=== PATIENT | female | born 2000 | race Caucasian/White ===

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

== ENCOUNTER 2019-09-16 02:12 | Inpatient (IN) | payer OTHER ==
[2019-09-16] MEDS ORDERED: SODIUM CHLORIDE 0.9% 500 ML 500 ML IV STA (02:21)
[2019-09-16] MEDS ORDERED: ACETYLCYSTEINE 6,000 MG/30 ML VIAL PO STA (02:33)
--- NOTE | 2019-09-16 02:38 | ED ---
Overdose HPI - General Source: patient, EMS Mode of arrival: EMS Limitations: no limitations - History of Present Illness MD Complaint: intentional overdose Onset/Timin -: hour(s) Intent: suicide attempt How Overdose Was Discovered: called 911 Associated Symptoms: depression Treatments Prior to Arrival: none <Bull Abad - Last Filed: 09/16/19 07:21> <Louise Navarrete - Last Filed: 09/16/19 09:39> - General Chief Complaint: Psychiatric Symptoms Stated Complaint: Suicidal Time Seen by Provider: 09/16/19 02:18 - History of Present Illness Initial Comments: This patient is 19-year-old woman who states she has been feeling increasingly depressed over the last couple of months and then tonight she decided she would take an overdose. She took an unknown number of Tylenol PM type pills, containing 500 mg of acetaminophen and 50 mg Benadryl. She also took an unknown number of naproxen 500 mg tablets. This was at midnight. Patient states that she then called 911. She is denying symptoms currently. (Bull Abad) - Related Data Previous Rx's Medication Instructions Recorded Azithromycin [Zithromax Z-pack] 250 mg PO DIRECTED #6 tab 03/10/17 Omeprazole 40 mg PO DAILY #20 capsule. 04/21/17 Ondansetron Odt [Zofran Odt] 4 mg PO Q8HR PRN #12 tab 04/21/17 Acetaminophen Tab [Tylenol Tab] 1,000 mg PO Q6HR #30 tablet 07/26/17 Ibuprofen [Motrin] 600 mg PO Q6HR PRN #30 tab 07/26/17 Promethazine/Dextromethorphan 5 ml PO TID #120 ml 07/26/17 [Phenergan DM Syrup] Allergies Allergy/AdvReac Type Severity Reaction Status Date / Time No Known Allergies Allergy Verified 08/13/17 20:59 Review of Systems ROS Other: All systems not noted in ROS Statement are negative. Constitutional: Denies: fever, chills Respiratory: Denies: cough, dyspnea Cardiovascular: Denies: chest pain, edema, syncope Gastrointestinal: Denies: abdominal pain, nausea, vomiting, diarrhea Genitourinary: Denies: dysuria, hematuria, abnormal menses Musculoskeletal: Denies: back pain Skin: Denies: rash Neurological: Denies: headache, weakness Psychiatric: Reports: depression, suicidal thoughts. Denies: auditory hallucinations, visual hallucinations <Bull Abad - Last Filed: 09/16/19 07:21> ROS Other: All systems not noted in ROS Statement are negative. <Louise Navarrete - Last Filed: 09/16/19 09:39> ROS Statement: Those systems with pertinent positive or pertinent negative responses have been documented in the HPI. Past Medical History Past Medical History: No Reported History History of Any Multi-Drug Resistant Organisms: None Reported Past Surgical History: Adenoidectomy, Tonsillectomy Past Psychological History: No Psychological Hx Reported, Bipolar, Depression Smoking Status: Never smoker Past Alcohol Use History: None Reported Past Drug Use History: Marijuana <Bull Abad - Last Filed: 09/16/19 07:21> General Exam Limitations: no limitations General appearance: alert, in no apparent distress Head exam: Present: atraumatic, normocephalic Eye exam: Present: normal appearance. Absent: scleral icterus, conjunctival in jection ENT exam: Present: normal oropharynx Respiratory exam: Present: normal lung sounds bilaterally. Absent: respiratory distress, wheezes, rales, rhonchi, stridor Cardiovascular Exam: Present: normal rhythm, tachycardia, normal heart sounds. Absent: systolic murmur, diastolic murmur, rubs, gallop GI/Abdominal exam: Present: soft. Absent: distended, tenderness, guarding, rebound, rigid, mass Extremities exam: Present: normal inspection, normal capillary refill. Absent: pedal edema, calf tenderness Back exam: Present: normal inspection. Absent: CVA tenderness (R), CVA tenderness (L) Neurological exam: Present: alert, oriented X3 Psychiatric exam: Present: depressed, anxious, suicidal ideation. Absent: agitated, flat affect, manic, homicidal ideation Skin exam: Present: warm, dry, intact, normal color. Absent: rash <Bull Abad - Last Filed: 09/16/19 07:21> Course Vital Signs 09/16/19 09/16/19 09/16/19 02:18 05:15 07:00 Temperature 98.8 F Pulse Rate 150 H 124 H 114 H Respiratory 20 20 18 Rate Blood Pressure 124/92 124/86 122/84 O2 Sat by Pulse 98 99 98 Oximetry 09/16/19 09/16/19 07:30 08:03 Temperature 98.2 F Pulse Rate 98 Respiratory 16 Rate Blood Pressure 122/84 O2 Sat by Pulse 98 Oximetry Medical Decision Making - Lab Data Result diagrams: 09/16/19 02:45 09/16/19 02:45 - EKG Data -: EKG Interpreted by Fl EKG shows normal: sinus rhythm, axis (Normal), intervals (Normal), QRS complexes (Normal), ST-T waves (Normal) Rate: tachycardia (Rate 142 bpm) <Bull Abad - Last Filed: 09/16/19 07:21> - Lab Data Result diagrams: 09/16/19 02:45 09/16/19 07:45 <Louise Navarrete - Last Filed: 09/16/19 09:39> - Medical Decision Making I did discuss the patient's case with poison control following the return of all of her labs, and the patient does remain below the treatment level for the Tylenol nomogram. Patient will be cleared to be seen by EPS (Bull Abad) The patient was reevaluated. Her Tylenol level is coming down. She is evaluated by ENT S and the patient did agree to sign herself in for the mental h ealth treatment. (Louise Navarrete) - Lab Data Lab Results 09/16/19 09/16/19 09/16/19 Range/Units 02:45 02:45 03:07 WBC 5.7 (3.8-10.6) k/uL RBC 5.03 (3.80-5.40) m/uL Hgb 14.9 (11.4-16.0) gm/dL Hct 43.9 (34.0-46.0) % MCV 87.2 (80.0-100.0) fL MCH 29.7 (25.0-35.0) pg MCHC 34.0 (31.0-37.0) g/dL RDW 12.0 (11.5-15.5) % Plt Count 200 (150-450) k/uL Neutrophils % 48 % Lymphocytes % 44 % Monocytes % 4 % Eosinophils % 1 % Basophils % 1 % Neutrophils # 2.7 (1.3-7.7) k/uL Lymphocytes # 2.5 (1.0-4.8) k/uL Monocytes # 0.2 (0-1.0) k/uL Eosinophils # 0.0 (0-0.7) k/uL Basophils # 0.0 (0-0.2) k/uL Sodium 137 (137-145) mmol/L Potassium 4.1 (3.5-5.1) mmol/L Chloride 104 (98-107) mmol/L Carbon Dioxide 24 (22-30) mmol/L Anion Gap 9 mmol/L BUN 10 (7-17) mg/dL Creatinine 0.62 (0.52-1.04) mg/dL Est GFR (CKD-EPI)AfAm >90 (>60 ml/min/1.73 sqM) Est GFR (CKD-EPI)NonAf >90 (>60 ml/min/1.73 sqM) Glucose 79 (74-99) mg/dL Calcium 9.9 (8.4-10.2) mg/dL Total Bilirubin 0.3 (0.2-1.3) mg/dL AST 26 (14-36) U/L ALT 18 (4-34) U/L Alkaline Phosphatase 49 (38-126) U/L Total Protein 7.5 (6.3-8.2) g/dL Albumin 4.6 (3.5-5.0) g/dL Urine HCG, Qual Not Detected (Not Detectd) Salicylates 1.1 mg/dL Urine Opiates Screen (NotDetected) Ur Oxycodone Screen (NotDetected) Urine Methadone Screen (NotDetected) Ur Propoxyphene Screen (NotDetected) Acetaminophen 70.9 H* ug/mL Ur Barbiturates Screen (NotDetected) U Tricyclic Antidepress (NotDetected) Ur Phencyclidine Scrn (NotDetected) Ur Amphetamines Screen (NotDetected) U Methamphetamines Scrn (NotDetected) U Benzodiazepines Scrn (NotDetected) Urine Cocaine Screen (NotDetected) U Marijuana (THC) Screen (NotDetected) Serum Alcohol <10 mg/dL 09/16/19 09/16/19 09/16/19 Range/Units 03:07 05:00 07:45 WBC (3.8-10.6) k/uL RBC (3.80-5.40) m/uL Hgb (11.4-16.0) gm/dL Hct (34.0-46.0) % MCV (80.0-100.0) fL MCH (25.0-35.0) pg MCHC (31.0-37.0) g/dL RDW (11.5-15.5) % Plt Count (150-450) k/uL Neutrophils % % Lymphocytes % % Monocytes % % Eosinophils % % Basophils % % Neutrophils # (1.3-7.7) k/uL Lymphocytes # (1.0-4.8) k/uL Monocytes # (0-1.0) k/uL Eosinophils # (0-0.7) k/uL Basophils # (0-0.2) k/uL Sodium 137 (137-145) mmol/L Potassium 4.2 (3.5-5.1) mmol/L Chloride 107 (98-107) mmol/L Carbon Dioxide 20 L (22-30) mmol/L Anion Gap 10 mmol/L BUN 8 (7-17) mg/dL Creatinine 0.61 (0.52-1.04) mg/dL Est GFR (CKD-EPI)AfAm >90 (>60 ml/min/1.73 sqM) Est GFR (CKD-EPI)NonAf >90 (>60 ml/min/1.73 sqM) Glucose 107 H (74-99) mg/dL Calcium 8.9 (8.4-10.2) mg/dL Total Bilirubin 0.3 (0.2-1.3) mg/dL AST 26 (14-36) U/L ALT 20 (4-34) U/L Alkaline Phosphatase 49 (38-126) U/L Total Protein 6.9 (6.3-8.2) g/dL Albumin 4.0 (3.5-5.0) g/dL Urine HCG, Qual (Not Detectd) Salicylates mg/dL Urine Opiates Screen Not Detected (NotDetected) Ur Oxycodone Screen Not Detected (NotDetected) Urine Methadone Screen Not Detected (NotDetected) Ur Propoxyphene Screen Not Detected (NotDetected) Acetaminophen 91.2 H* ug/mL Ur Barbiturates Screen Not Detected (NotDetected) U Tricyclic Antidepress Not Detected (NotDetected) Ur Phencyclidine Scrn Not Detected (NotDetected) Ur Amphetamines Screen Not Detected (NotDetected) U Methamphetamines Scrn Not Detected (NotDetected) U Benzodiazepines Scrn Not Detected (NotDetected) Urine Cocaine Screen Not Detected (NotDetected) U Marijuana (THC) Screen Not Detected (NotDetected) Serum Alcohol mg/dL 09/16/19 Range/Units 07:45 WBC (3.8-10.6) k/uL RBC (3.80-5.40) m/uL Hgb (11.4-16.0) gm/dL Hct (34.0-46.0) % MCV (80.0-100.0) fL MCH (25.0-35.0) pg MCHC (31.0-37.0) g/dL RDW (11.5-15.5) % Plt Count (150-450) k/uL Neutrophils % % Lymphocytes % % Monocytes % % Eosinophils % % Basophils % % Neutrophils # (1.3-7.7) k/uL Lymphocytes # (1.0-4.8) k/uL Monocytes # (0-1.0) k/uL Eosinophils # (0-0.7) k/uL Basophils # (0-0.2) k/uL Sodium (137-145) mmol/L Potassium (3.5-5.1) mmol/L Chloride (98-107) mmol/L Carbon Dioxide (22-30) mmol/L Anion Gap mmol/L BUN (7-17) mg/dL Creatinine (0.52-1.04) mg/dL Est GFR (CKD-EPI)AfAm (>60 ml/min/1.73 sqM) Est GFR (CKD-EPI)NonAf (>60 ml/min/1.73 sqM) Glucose (74-99) mg/dL Calcium (8.4-10.2) mg/dL Total Bilirubin (0.2-1.3) mg/dL AST (14-36) U/L ALT (4-34) U/L Alkaline Phosphatase (38-126) U/L Total Protein (6.3-8.2) g/dL Albumin (3.5-5.0) g/dL Urine HCG, Qual (Not Detectd) Salicylates mg/dL Urine Opiates Screen (NotDetected) Ur Oxycodone Screen (NotDetected) Urine Methadone Screen (NotDetected) Ur Propoxyphene Screen (NotDetected) Acetaminophen 45.4 ug/mL Ur Barbiturates Screen (NotDetected) U Tricyclic Antidepress (NotDetected) Ur Phencyclidine Scrn (NotDetected) Ur Amphetamines Screen (NotDetected) U Methamphetamines Scrn (NotDetected) U Benzodiazepines Scrn (NotDetected) Urine Cocaine Screen (NotDetected) U Marijuana (THC) Screen (NotDetected) Serum Alcohol mg/dL - EKG Data EKG Comments: EKG was reviewed and demonstrates a sinus tachycardia with a ventricular rate of 128. NE interval 150. QRS 90. QTC of 455. No acute ST segment elevations or depressions concerning for ischemic changes. No widening of the QRS. QTC mildly prolonged (Louise Navarrete) Disposition <Bull Abad - Last Filed: 09/16/19 07:21> Is patient prescribed a controlled substance at d/c from ED?: No Decision to Admit Reason: Admit from EC Decision Date: 09/16/19 Decision Time: 09:24 <Louise Navarrete - Last Filed: 09/16/19 09:39> Clinical Impression: Attempted suicide, Depression Disposition: ADMITTED IP TO THIS [facility] Condition: Stable Referrals: None,Stated [Primary Care Provider] - 1-2 days
[2019-09-16 03:28] LABS: Amphetamine Screen,Urine Not Detected (NotDetected); Barbiturate Screen,Urine Not Detected (NotDetected); Benzodiazepines Screen,Urine Not Detected (NotDetected); Cocaine Screen,Urine Not Detected (NotDetected); Methadone Screen, Urine Not Detected (NotDetected); Opiate Screen,Urine Not Detected (NotDetected); Oxycodone Screen, Urine Not Detected (NotDetected); Phencyclidine Screen,Urine Not Detected (NotDetected); Tricyclic Antidepressant,Urine Not Detected (NotDetected); Urn Cannabinoid Scrn Not Detected (NotDetected)
[2019-09-16 03:37] LABS: Basophils % (A) 1 %; Eosinophils % (A) 1 %; HCT 43.9 % (34.0-46.0); HGB 14.9 gm/dL (11.4-16.0); Lymphocytes # (A) 2.5 k/uL (1.0-4.8); Lymphocytes % (A) 44 %; MCH 29.7 pg (25.0-35.0); MCV 87.2 fL (80.0-100.0); Mean Platelet Volume 9.1; Monocytes # (A) 0.2 k/uL (0-1.0); Monocytes % (A) 4 %; Neutrophils # (A) 2.7 k/uL (1.3-7.7); Neutrophils % (A) 48 %; Platelet Count 200 k/uL (150-450); RBC 5.03 m/uL (3.80-5.40); WBC 5.7 k/uL (3.8-10.6)
[2019-09-16 03:48] LABS: ALT 18 U/L (4-34); AST 26 U/L (14-36); African American GFR (CKD) >90 (>60 ml/min/1.73 sqM); Albumin 4.6 g/dL (3.5-5.0); Alcohol <10 mg/dL; Alkaline Phosphatase 49 U/L (38-126); Anion Gap 9 mmol/L; Blood Urea Nitrogen 10 mg/dL (7-17); Calcium 9.9 mg/dL (8.4-10.2); Carbon Dioxide 24 mmol/L (22-30); Chloride 104 mmol/L (98-107); Glucose 79 mg/dL (74-99); Non-African American GFR(CKD) >90 (>60 ml/min/1.73 sqM); Potassium 4.1 mmol/L (3.5-5.1); Salicylate 1.1 mg/dL; Sodium 137 mmol/L (137-145); Total Bilirubin 0.3 mg/dL (0.2-1.3); Total Protein 7.5 g/dL (6.3-8.2)
[2019-09-16 04:06] LABS: Acetaminophen 70.9 ug/mL
[2019-09-16] MEDS ORDERED: ONDANSETRON 4 MG/2 ML VIAL IVP STA ×2 (05:20→07:41)
[2019-09-16] MEDS ORDERED: SODIUM CHLORIDE 0.9% 1,000 ML IV STA (06:16)
[2019-09-16 08:04] VITALS: RESP 16
[2019-09-16 08:23] LABS: ALT 20 U/L (4-34); AST 26 U/L (14-36); African American GFR (CKD) >90 (>60 ml/min/1.73 sqM); Alkaline Phosphatase 49 U/L (38-126); Anion Gap 10 mmol/L; Blood Urea Nitrogen 8 mg/dL (7-17); Calcium 8.9 mg/dL (8.4-10.2); Carbon Dioxide 20 mmol/L (22-30); Chloride 107 mmol/L (98-107); Glucose 107 mg/dL (74-99); Non-African American GFR(CKD) >90 (>60 ml/min/1.73 sqM); Potassium 4.2 mmol/L (3.5-5.1); Sodium 137 mmol/L (137-145); Total Bilirubin 0.3 mg/dL (0.2-1.3); Total Protein 6.9 g/dL (6.3-8.2)
[2019-09-16] MEDS ORDERED: MAG HYDROX/AL HYDROX/SIMETH 30 ML CUP PO PRN (09:43)
[2019-09-16] MEDS ORDERED: MAGNESIUM HYDROXIDE 2,400 MG/10 ML CUP PO PRN (09:43)
[2019-09-16 11:06] VITALS: BP 107/71; PULSE 81; TEMP 96.8
[2019-09-16 11:54] LABS: Appearance,Urine Cloudy (Clear); Bacteria,Urine Occasional /hpf; Bilirubin,Urine Negative (Negative); Blood,Urine Negative (Negative); Color,Urine Yellow; Glucose,Urine (UA) Negative (Negative); Ketones,Urine Negative (Negative); Leukocyte Esterase,Urine Negative (Negative); Mucus,Urine Rare /hpf; Nitrite,Urine Negative (Negative); PH, Urine 6.5 (5.0-8.0); Protein,Urine Trace (Negative); RBC,Urine 2 /hpf (0-5); Specific Gravity,Urine 1.045 (1.001-1.035); Squamous Epithelial Cell,Urine 9 /hpf (0-4); WBC,Urine 4 /hpf (0-5)
--- NOTE | 2019-09-16 12:46 | P.HP ---
Psychiatric H&P - . H&P Date: 09/16/19 History & Physical: DATE OF SERVICE: [] IDENTIFYING DATA: This patient is a [19]-year-old single female who was admitted to the mental health unit through [ER]. HISTORY OF PRESENT ILLNESS: The patient presents to ER after taking an overdose on Tylenol PM. The patient could not tell up how much of Tylenol she took but her acetaminophen level was 91. The patient reports a long history of depression. She reports having dysphoric mood and frequent crying spells. The patient reports that her depression started getting worse in April 2019 after she lost her best friend apparently to suicide. The patient suspects that it wasn't a suicide and was followed plate. The patient reports poor sleep at night and reports difficulty falling asleep. She reports sleeping during the day. The patient reports fair appetite and reports some weight gain but not s ignificant recently. The patient reports feelings of hopelessness and helplessness. The patient also reports feeling lonely all the time and has limited social support. The patient also has history of chronic suicidal ideations but has never attempted suicide until just prior to this admission. The patient also reports a history of some impulsivity. She reports having shopping sprees. She also reports traveling without plans. The patient reports having anger issues and throws things when angry. The patient has history of self-mutilation and reports that she started cutting in middle school but stopped area the patient reports that she was cutting until a month ago but denies any intentions or urges to do that anymore. She denies any history of euphoric episodes. The patient denies any auditory or visual hallucinations. She denies any active homicidal or paranoid ideations at this time. The patient is still reports having suicidal ideations but denies any intentions or plans to harm herself or someone else at this time.. PAST PSYCHIATRIC HISTORY: Past hospitalizations: None Suicidal attempts: 1 Medications: None PAST MEDICAL HISTORY: [Asthma]. ALLERGIES: [No known drug allergies]. CHEMICAL DEPENDENCY HISTORY: []. Alcohol: The patient admits to occasional drinking but reports that she does not like to drink and does not drink excessively. Marijuana: The patient reports occasional use of marijuana. She reports on and off for use of marijuana since 2016 and last used more than a month ago. Cocaine: The patient admitted to using cocaine times one Rehab: None FAMILY PSYCHIATRIC HISTORY: [The patient reports that her mom is diagnosed with bipolar disorder and has history of alcohol abuse and is not drinking anymore. The patient also reports that her maternal and is bipolar]. FAMILY CHEMICAL DEPENDENCY HISTORY:[ The patient reports a strong family history of alcohol abuse on her mom's side of the family. She reports mother was an alcoholic but is not drinking anymore. The patient reports that her uncles and aunts on maternal side have history of alcohol abuse.]. LEGAL HISTORY: [Denies]. SOCIAL HISTORY: [The patient was born and raised in [place]. She reports that her parents before she was born. The patient graduated from high school. The patient is currently unemployed but is helping her mother who lives next door and is suffering from MS. The patient reports a stressful childhood because of mother's illness. She denies any history of abuse. The patient is currently in a relationship for last 2 months and reports good relationship with her boyfriend.]. MENTAL STATUS EXAM: [ General Appearance: Patient appears to be stated age is alert, directable. Patient has fair eye contact. Behavior: Patient is seated without any agitated behavior. Appears to be anxious Speech: Patient's speech is goal-directed and nonpressured. soft tone. Mood/Affect: Patient reports her mood is depressed, affect is congruent Suicidality/Homicidality: Patient reports having suicidal ideation but denies any plans at this time. Perceptions: Patient denies any visual or auditory hallucinations. Though content/process: Logical Memory and concentration: AOX3, grossly intact for the purposes of this session. Judgment and insight: Limited]. Allergies Allergy/AdvReac Type Severity Reaction Status Date / Time No Known Allergies Allergy Verified 09/16/19 11:46 Vital Signs Temp 96.8 F L 09/16/19 11:05 Pulse 81 09/16/19 11:05 Resp 16 09/16/19 11:05 BP 107/71 09/16/19 11:05 Pulse Ox 99 09/16/19 11:05 Intake & Output 09/15/19 09/16/19 09/16/19 18:59 06:59 18:59 Weight 61.462 kg 58.786 kg Laboratory Last Values WBC 5.7 k/uL (3.8-10.6) 09/16/19 02:45 RBC 5.03 m/uL (3.80-5.40) 09/16/19 02:45 Hgb 14.9 gm/dL (11.4-16.0) 09/16/19 02:45 Hct 43.9 % (34.0-46.0) 09/16/19 02:45 MCV 87.2 fL (80.0-100.0) 09/16/19 02:45 MCH 29.7 pg (25.0-35.0) 09/16/19 02:45 MCHC 34.0 g/dL (31.0-37.0) 09/16/19 02:45 RDW 12.0 % (11.5-15.5) 09/16/19 02:45 Plt Count 200 k/uL (150-450) 09/16/19 02:45 Neutrophils % 48 % 09/16/19 02:45 Lymphocytes % 44 % 09/16/19 02:45 Monocytes % 4 % 09/16/19 02:45 Eosinophils % 1 % 09/16/19 02:45 Basophils % 1 % 09/16/19 02:45 Neutrophils # 2.7 k/uL (1.3-7.7) 09/16/19 02:45 Lymphocytes # 2.5 k/uL (1.0-4.8) 09/16/19 02:45 Monocytes # 0.2 k/uL (0-1.0) 09/16/19 02:45 Eosinophils # 0.0 k/uL (0-0.7) 09/16/19 02:45 Basophils # 0.0 k/uL (0-0.2) 09/16/19 02:45 Sodium 137 mmol/L (137-145) 09/16/19 07:45 Potassium 4.2 mmol/L (3.5-5.1) 09/16/19 07:45 Chloride 107 mmol/L (98-107) 09/16/19 07:45 Carbon Dioxide 20 mmol/L (22-30) L 09/16/19 07:45 Anion Gap 10 mmol/L 09/16/19 07:45 BUN 8 mg/dL (7-17) 09/16/19 07:45 Creatinine 0.61 mg/dL (0.52-1.04) 09/16/19 07:45 Est GFR (CKD-EPI)AfAm >90 (>60 ml/min/1.73 sqM) 09/16/19 07:45 Est GFR (CKD-EPI)NonAf >90 (>60 ml/min/1.73 sqM) 09/16/19 07:45 Glucose 107 mg/dL (74-99) H 09/16/19 07:45 Calcium 8.9 mg/dL (8.4-10.2) 09/16/19 07:45 Total Bilirubin 0.3 mg/dL (0.2-1.3) 09/16/19 07:45 AST 26 U/L (14-36) 09/16/19 07:45 ALT 20 U/L (4-34) 09/16/19 07:45 Alkaline Phosphatase 49 U/L (38-126) 09/16/19 07:45 Total Protein 6.9 g/dL (6.3-8.2) 09/16/19 07:45 Albumin 4.0 g/dL (3.5-5.0) 09/16/19 07:45 Urine Color Yellow 09/16/19 10:30 Urine Appearance Cloudy (Clear) H 09/16/19 10:30 Urine pH 6.5 (5.0-8.0) 09/16/19 10:30 Ur Specific Mcrae 1.045 (1.001-1.035) H 09/16/19 10:30 Urine Protein Trace (Negative) H 09/16/19 10:30 Urine Glucose (UA) Negative (Negative) 09/16/19 10:30 Urine Ketones Negative (Negative) 09/16/19 10:30 Urine Blood Negative (Negative) 09/16/19 10:30 Urine Nitrite Negative (Negative) 09/16/19 10:30 Urine Bilirubin Negative (Negative) 09/16/19 10:30 Urine Urobilinogen 2.0 mg/dL (<2.0) 09/16/19 10:30 Ur Leukocyte Esterase Negative (Negative) 09/16/19 10:30 Urine RBC 2 /hpf (0-5) 09/16/19 10:30 Urine WBC 4 /hpf (0-5) 09/16/19 10:30 Ur Squamous Epith Cells 9 /hpf (0-4) H 09/16/19 10:30 Urine Bacteria Occasional /hpf (None) H 09/16/19 10:30 Urine Mucus Rare /hpf (None) H 09/16/19 10:30 Urine HCG, Qual Not Detected (Not Detectd) 09/16/19 03:07 Salicylates 1.1 mg/dL 09/16/19 02:45 Urine Opiates Screen Not Detected (NotDetected) 09/16/19 03:07 Ur Oxycodone Screen Not Detected (NotDetected) 09/16/19 03:07 Urine Methadone Screen Not Detected (NotDetected) 09/16/19 03:07 Ur Propoxyphene Screen Not Detected (NotDetected) 09/16/19 03:07 Acetaminophen 45.4 ug/mL 09/16/19 07:45 Ur Barbiturates Screen Not Detected (NotDetected) 09/16/19 03:07 U Tricyclic Antidepress Not Detected (NotDetected) 09/16/19 03:07 Ur Phencyclidine Scrn Not Detected (NotDetected) 09/16/19 03:07 Ur Amphetamines Screen Not Detected (NotDetected) 09/16/19 03:07 U Methamphetamines Scrn Not Detected (NotDetected) 09/16/19 03:07 U Benzodiazepines Scrn Not Detected (NotDetected) 09/16/19 03:07 Urine Cocaine Screen Not Detected (NotDetected) 09/16/19 03:07 U Marijuana (THC) Screen Not Detected (NotDetected) 09/16/19 03:07 Serum Alcohol <10 mg/dL 09/16/19 02:45 09/16/19 12:24 09/16/19 12:45 Assessment and Plan Assessment: IMPRESSIONS: Bipolar disorder depressive episode with suicidal ideations. Plan: PLAN: Admit to the mental health unit. Placed on suicidal precautions and 15 minute checks for safety. Consults internal medicine team for history and physical and management of medical problems. Provide the patient individual, group therapy, substance use disorder counseling to give better insight and learn coping skills. Medications: Start patient on Depakote ER 500 mg by mouth twice a day. Start patient on melatonin 3 mg by mouth daily at bedtime when necessary Adjust medications and monitor closely for the patient's symptoms getting worse and /or possible side effects on medications. Discharge patient to OUTPATIENT services upon a stabilization Expected LOS: 3-5 days
[2019-09-16 18:37] LABS: Hemoglobin A1C 4.8 % (4.0-6.0)
[2019-09-16] MEDS ORDERED: DIVALPROEX ER 500 MG TAB.ER.24H PO SCH (21:00)
[2019-09-16] MEDS ORDERED: MELATONIN 3 MG TABLET PO SCH (21:00)
--- NOTE | 2019-09-17 13:38 | P.DS ---
Providers Date of admission: 09/16/19 09:35 Attending physician: Tia Waller MD Consults: 09/16/19 09:43 Consult Physician Routine Consulting Provider: Hal Physician Consult Reason/Comments: H&P medical managment Do you want consulting provider notified?: Yes Primary care physician: Stated None Hospital Course: IDENTIFYING DATA: This patient was a 19-year-old single female who was admitted to the mental health unit through ER. HISTORY OF PRESENT ILLNESS: The patient initially presented to ER after taking an overdose on Tylenol PM. The patient could not tell up how much of Tylenol she took but her acetaminophen level was 91. The patient reports a long history of depression. She reports having dysphoric mood and frequent crying spells. The patient reports that her depression started getting worse in April 2019 after she lost her best friend apparently to suicide. The patient suspects that it wasn't a suicide and was homicide. The patient reported poor sleep at night and reported difficulty falling asleep. She reports sleeping during the day. The patient reports fair appetite and reports some weight gain but not significant recently. The patient reports feelings of hopelessness and helplessness. The patient also reported feeling lonely all the time and has limited social support. The patient also has history of chronic suicidal ideations but has never attempted suicide until just prior to this admission. The patient also reported a history of some impulsivity. She reports having shopping sprees. She also reported traveling without plans. The patient reported having anger issues and throws things when angry. The patient had history of self-mutilation and reported that she started cutting in middle school but stopped area the patient reports that she was cutting until a month ago but denies any intentions or urges to do that anymore. She denied any history of euphoric episodes. The patient denied any auditory or visual hallucinations. She denied any active homicidal or paranoid ideations at this time. The patient reported having suicidal ideations but denied any intentions or plans to harm herself or someone else at this time.. PAST PSYCHIATRIC HISTORY: Patient has a history of bipolar disorder and has no previous history of psychiatric hospitalization. Patient has 1 previous suicide attempt in the past. Patient is currently taking Depakote 500 mg daily for mood stabilization. Patient has no psychiatric outpatient follow-up. PAST MEDICAL HISTORY: Asthma. ALLERGIES: No known drug allergies. CHEMICAL DEPENDENCY HISTORY: As per HPI. FAMILY PSYCHIATRIC HISTORY: The patient reports that her mom is diagnosed with bipolar disorder and has history of alcohol abuse and is not drinking anymore. The patient also reports that her maternal and is bipolar. FAMILY CHEMICAL DEPENDENCY HISTORY: The patient reported a strong family history of alcohol abuse on her mom's side of the family. She reports mother was an alcoholic but is not drinking anymore. The patient reports that her uncles and aunts on maternal side have history of alcohol abuse. SOCIAL HISTORY: The patient was born and raised in [place]. She reports that her parents before she was born. The patient graduated from high school. The patient is currently unemployed but is helping her mother who lives next door and is suffering from MS. The patient reports a stressful childhood because of mother's illness. She denies any history of abuse. The patient is currently in a relationship for last 2 months and reports good relationship with her boyfriend.. MENTAL STATUS EXAM: General Appearance: Patient appears to be stated age is alert, directable. Patient has fair eye contact. Behavior: Patient was seated without any agitated behavior. Appeared to be anxious Speech: Patient's speech was goal-directed and nonpressured. soft tone. Mood/Affect: Patient reported her mood was depressed, affect was congruent Suicidality/Homicidality: Patient reported having suicidal ideation but denied any plans at the time. Perceptions: Patient denied any visual or auditory hallucinations. Though content/process: Logical Memory and concentration: AOX3, grossly intact for the purposes of this session. Judgment and insight: Limited Hospital Course: Patient was admitted on a voluntary basis, placed on routine observation in group and activity therapy were ordered. Patient was also ordered routine laboratory studies and a medical consultation was also ordered. The patient was agreeable with the plan. If she attended and participated in milieu therapy. The patient was started on Depakote ER 500 mg by mouth twice a day. The patient was found to have an elevated acetaminophen level and as per the recommendation of the medical consult she was subsequently transferred to the medical floors for treatment with Mucomyst. Discharge Mental Status: Appearance:Patient is neatly and appropriately dressed, makes eye contact and was cooperative. Behavior: Patient did not display any psychomotor agitation or retardation. Speech/Language: Patient's speech was spontaneous of normal volume and rhythm and he was coherent Thought Process: Patient was goal-directed there was no evidence of loose association or flight of ideas Thought Content: Patient denied any auditory or visual hallucinations no delusions or paranoid ideation were elicited. Suicidal/Homicidal Ideation: Patient denies any current suicidal or homicidal ideation Sensorium/Cognition: Patient was alert and oriented to person, place, and time and his recent and remote memory were grossly intact Mood/Affect: Patient's mood was depressed and his affect is appropriate to his mood Insight/Judgment: Patient's insight and judgment were fair. Assessment: IMPRESSIONS: Bipolar disorder depressive episode with suicidal ideations. Cannabis use disorder, mild Patient Condition at Discharge: Fair Plan - Discharge Summary Discharge Rx Participant: No New Discharge Prescriptions: No Action Control (Unknown) 1 tab PO DAILY Discharge Medication List Control (Unknown) 1 tab PO DAILY 09/16/19 [History] Follow up Appointment(s)/Referral(s): None,Stated [Primary Care Provider] - 1-2 days Discharge Disposition: HOME SELF-CARE
== END 2019-09-16 16:17 | disposition home or self-care (01) | DRG 885 ==
LOC: EC 02:12 → SUPCPDRO 02:12 → 3MHU 09:35
PROVIDERS: ADMIT Psychiatry & Neurology Psychiatry; ATTEND Psychiatry & Neurology Psychiatry
DX: F31.30 Bipolar disorder, current episode depressed, mild or moderate severity, unspecified (principal); R45.851 Suicidal ideations; F12.90 Cannabis use, unspecified, uncomplicated; T39.1X2A Poisoning by 4-Aminophenol derivatives, intentional self-harm, initial encounter; T45.0X2A Poisoning by antiallergic and antiemetic drugs, intentional self-harm, initial encounter; F41.9 Anxiety disorder, unspecified; Z79.899 Other long term (current) drug therapy; Z91.5 Personal history of self-harm; Z81.1 Family history of alcohol abuse and dependence; Z82.0 Family history of epilepsy and other diseases of the nervous system
CPT/HCPCS: 36415; 80053; 80306; 80320; 80329; 81001; 81025; 82075; 83036; 83520; 85025; 93005

== ENCOUNTER 2019-09-16 14:21 | Inpatient (IN) | payer OTHER ==
[2019-09-16] MEDS ORDERED: NALOXONE 0.4 MG/ML 1 ML VIAL IV PRN ×2 (17:50→17:51)
[2019-09-16] MEDS ORDERED: ACETYLCYSTEINE 6,000 MG/30 ML VIAL PO ONE (18:00)
--- NOTE | 2019-09-16 18:08 | P.HPIM ---
History of Present Illness H&P Date: 09/16/19 Chief Complaint: Tylenol overdose 19-year-old female presented to the hospital because she took about 30 tablets of acetaminophen. She has been more depressed lately and having lots of difficulties in life and because of that she took the Tylenol. The patient reports that her depression started getting worse in April 2019 after she lost her best friend apparently to suicide. She currently denies having any abdominal pain, no nausea or vomiting. No fevers or chills. No recent illness. No diarrhea. Her peak acetaminophen level was 91 so it was decided to admit her to the medical floor for acetylcysteine treatment and to get follow-up LFTs and acetaminophen levels. Review of Systems Complete review of system performed, pertinent positives per HPI, otherwise negative Past Medical History Past Medical History: No Reported History History of Any Multi-Drug Resistant Organisms: None Reported Past Surgical History: Adenoidectomy, Tonsillectomy Past Anesthesia/Blood Transfusion Reactions: No Reported Reaction Past Psychological History: No Psychological Hx Reported, Bipolar, Depression Smoking Status: Never smoker Past Alcohol Use History: None Reported Past Drug Use History: Marijuana Additional Drug Use History / Comment(s): vaping - Past Family History Mother Family Medical History: Musculoskeletal Disorder Medications and Allergies Home Medications Medication Instructions Recorded Confirmed Type Control (Unknown) 1 tab PO DAILY 09/16/19 09/16/19 History Allergies Allergy/AdvReac Type Severity Reaction Status Date / Time No Known Allergies Allergy Verified 09/16/19 11:46 Physical Exam Vitals: Vital Signs Temp Pulse Resp BP Pulse Ox 09/16/19 16:30 98.3 F 79 16 108/63 98 09/16/19 16:27 98.2 F 79 16 108/63 98 Intake and Output 09/16/19 09/16/19 09/16/19 06:59 14:59 22:59 Other: # Voids 1 Weight 58.5 kg Constitutional: No acute distress, conversant, pleasant Eyes:Anicteric sclerae, moist conjunctiva, no lid-lag, PERRLA, ENMT: Oropharynx clear, no erythema, exudates Neck: Supple, FROM, no masses, or JVD, No carotid bruits, No thyromegaly Lungs: Clear to auscultation, Clear to percussion, Normal respiratory effort, no accessory muscle use Cardiovascular: Heart regular in rate and rhythm, No murmurs, gallops, or rubs, No peripheral edema Abdominal: Soft, Nontender, no guarding, rebound or rigidity, Normoactive bowel sounds, No hepatomegaly, No splenomegaly, No palpable mass Skin: Normal temperature, tone, texture, turgor, no induration, No subcutaneous nodules, No rash, lesions, No ulcers Extremities: No digital cyanosis, No clubbing, Pedal pulses intact and symmetrical, Radial pulses intact and symmetrical, No calf tenderness Psychiatric: Alert and oriented to person, place and time, appropriate affect, intact judgement Neuro: Muscles Strength 5/5 in all 4 extremities, Sensation to light touch grossly present throughout, Cranial nerves II-XII grossly intact, no focal sensory deficits Assessment and Plan Plan: Acetaminophen toxicity Recheck levels per protocol Start acetylcysteine treatment orally Recheck LFTs Supportive care IV fluids Depression and bipolar disorder Management per psychiatry Start patient on Depakote ER 500 mg by mouth twice a day. Insomnia Start patient on melatonin 3 mg by mouth daily at bedtime when necessary
[2019-09-16] MEDS: SODIUM CHLORIDE 0.9% 1,000 ML IV SCH (18:37)
[2019-09-16] MEDS: ACETYLCYSTEINE 6,000 MG/30 ML VIAL PO SCH (22:40)
[2019-09-17] MEDS: SODIUM CHLORIDE 0.9% 1,000 ML IV SCH ×2 (01:28→08:38)
[2019-09-17] MEDS: ACETYLCYSTEINE 6,000 MG/30 ML VIAL PO SCH ×6 (02:46→23:06)
[2019-09-17 06:38] LABS: Basophils % (A) 1 %; Eosinophils % (A) 1 %; HCT 35.6 % (34.0-46.0); Lymphocytes # (A) 2.6 k/uL (1.0-4.8); Lymphocytes % (A) 46 %; MCH 30.1 pg (25.0-35.0); MCHC 33.7 g/dL (31.0-37.0); MCV 89.2 fL (80.0-100.0); Mean Platelet Volume 8.8; Monocytes # (A) 0.2 k/uL (0-1.0); Monocytes % (A) 4 %; Neutrophils # (A) 2.6 k/uL (1.3-7.7); Neutrophils % (A) 46 %; Platelet Count 158 k/uL (150-450); RBC 3.99 m/uL (3.80-5.40); RDW 12.2 % (11.5-15.5); WBC 5.7 k/uL (3.8-10.6)
[2019-09-17 06:44] LABS: ALT 16 U/L (4-34); AST 20 U/L (14-36); African American GFR (CKD) >90 (>60 ml/min/1.73 sqM); Albumin 3.6 g/dL (3.5-5.0); Alkaline Phosphatase 35 U/L (38-126); Anion Gap 7 mmol/L; Blood Urea Nitrogen 8 mg/dL (7-17); Calcium 8.8 mg/dL (8.4-10.2); Carbon Dioxide 21 mmol/L (22-30); Chloride 107 mmol/L (98-107); Glucose 92 mg/dL (74-99); Magnesium 1.8 mg/dL (1.6-2.3); Non-African American GFR(CKD) >90 (>60 ml/min/1.73 sqM); Phosphorus 3.1 mg/dL (2.5-4.5); Potassium 4.2 mmol/L (3.5-5.1); Sodium 135 mmol/L (137-145); Total Bilirubin 0.3 mg/dL (0.2-1.3); Total Protein 6.3 g/dL (6.3-8.2)
[2019-09-17] MEDS ORDERED: MELATONIN 3 MG TABLET PO PRN (10:15)
[2019-09-17] MEDS ORDERED: DIVALPROEX ER 500 MG TAB.ER.24H PO SCH (10:15)
--- NOTE | 2019-09-17 10:20 | P.PN ---
Subjective Progress Note Date: 09/17/19 Principal diagnosis: Overdose Feeling ok, no new complaints, no overnight issues. Objective - Vital Signs Vital signs: Vital Signs Temp 98.5 F 09/17/19 08:39 Pulse 83 09/17/19 08:39 Resp 18 09/17/19 08:39 BP 116/68 09/17/19 08:39 Pulse Ox 100 09/17/19 08:39 Intake & Output 09/16/19 09/17/19 09/17/19 18:59 06:59 18:59 Intake Total 240 240 Balance 240 240 Weight 58.5 kg 59.8 kg Intake: Oral 240 240 Other: # Voids 1 1 - Exam Constitutional: No acute distress, conversant, pleasant Eyes:Anicteric sclerae, moist conjunctiva, no lid-lag, PERRLA, ENMT: Oropharynx clear, no erythema, exudates Neck: Supple, FROM, no masses, or JVD, No carotid bruits, No thyromegaly Lungs: Clear to auscultation, Clear to percussion, Normal respiratory effort, no accessory muscle use Cardiovascular: Heart regular in rate and rhythm, No murmurs, gallops, or rubs, No peripheral edema Abdominal: Soft, Nontender, no guarding, rebound or rigidity, Normoactive bowel sounds, No hepatomegaly, No splenomegaly, No palpable mass Skin: Normal temperature, tone, texture, turgor, no induration, No subcutaneous nodules, No rash, lesions, No ulcers Extremities: No digital cyanosis, No clubbing, Pedal pulses intact and symmetrical, Radial pulses intact and symmetrical, No calf tenderness Psychiatric: Alert and oriented to person, place and time, appropriate affect, intact judgement Neuro: Muscles Strength 5/5 in all 4 extremities, Sensation to light touch grossly present throughout, Cranial nerves II-XII grossly intact, no focal s ensory deficits - Labs CBC & Chem 7: 09/17/19 06:17 09/17/19 06:17 Labs: Abnormal Lab Results - Last 24 Hours (Table) 09/17/19 Range/Units 06:17 Sodium 135 L (137-145) mmol/L Carbon Dioxide 21 L (22-30) mmol/L Alkaline Phosphatase 35 L (38-126) U/L Assessment and Plan Plan: Acetaminophen toxicity Continue acetylcysteine treatment orally per protocol Recheck LFTs in am Consult psych to see if patient needs to go back to unit or can go back home Supportive care Discontinue IV fluids Depression and bipolar disorder Management per psychiatry Start patient on Depakote ER 500 mg by mouth twice a day. Insomnia Start patient on melatonin 3 mg by mouth daily at bedtime when necessary
--- NOTE | 2019-09-17 12:46 | P.CN ---
Psychiatric Consult - . Consult date: 09/17/19 Consult:: 09/17/19 11:50 IDENTIFYING DATA: This patient is a 19-year-old single female who was admitted to the mental health unit through ER. HISTORY OF PRESENT ILLNESS: The patient initially presented to ER after taking an overdose on Tylenol PM. Patient was transferred to the mental health unit however was found to have an elevated acetaminophen level and subsequently was transferred to the medical floors for treatment with Mucomyst. Patient's LFTs and acetaminophen level have been gradually improving and are currently within normal limits. Psychiatric consultation was placed for overdose on Tylenol and patient was seen at the bedside with her sitter. She reports having dysphoric mood and frequent crying spells. The patient reports that her depression started getting worse in April 2019 after she lost her best friend apparently to suicide. The patient reports poor sleep at night and reports difficulty falling asleep, sleeping approximately 3-4 hours a night and some throughout the day. The patient reports fair appetite and reports some weight gain but not significant recently. The patient reports feelings of hopelessness and helplessness. The patient also reports feeling lonely all the time and has limited social support. The patient also has history of chronic suicidal ideations but has never attempted suicide until just prior to this admission. The patient also reports a history of some impulsivity and irritability. Patient denied any high risk behaviors including excessive shopping, multiple sexual partners, drug use or flight of ideas. The patient reports having anger issues and throws things when angry. The patient has history of self-mutilation and reports that she started cutting in middle school but stopped area the patient reports that she was cutting until a month ago but denies any intentions or urges to do that anymore. She denies any history of euphoric episodes. The patient denies any auditory or visual hallucinations. She denies any active homicidal or paranoid ideations at this time. The patient denies any suicidal or homicidal ideations intent or plan at this time. She admits to occasional alcohol use and also reports occasional use of marijuana since 2016 and her last use was on 11 month ago. Patient also admitted to using cocaine once. PAST PSYCHIATRIC HISTORY: Patient has a history of bipolar disorder and has no previous history of psychiatric hospitalization. Patient has 1 previous suicide attempt in the past. Patient is currently taking Depakote 500 mg daily for mood stabilization. Patient has no psychiatric outpatient follow-up. PAST MEDICAL HISTORY: Asthma. ALLERGIES: No known drug allergies. CHEMICAL DEPENDENCY HISTORY: As per HPI. FAMILY PSYCHIATRIC HISTORY: The patient reports that her mom is diagnosed with bipolar disorder and has history of alcohol abuse and is not drinking anymore. The patient also reports that her maternal and is bipolar. FAMILY CHEMICAL DEPENDENCY HISTORY: The patient reports a strong family history of alcohol abuse on her mom's side of the family. She reports mother was an alcoholic but is not drinking anymore. The patient reports that her uncles and aunts on maternal side have history of alcohol abuse. SOCIAL HISTORY: The patient was born and raised in [place]. She reports that her parents before she was born. The patient graduated from high school. The patient is currently unemployed but is helping her mother who lives next door and is suffering from MS. The patient reports a stressful childhood because of mother's illness. She denies any history of abuse. The patient is currently in a relationship for last 2 months and reports good relationship with her boyfriend.. MENTAL STATUS EXAM: General Appearance: Patient appears to be thin, stated age is alert, directable and appears to be timid during conversation. Patient has fair eye contact. Wearing hospital gown. Behavior: Patient is laying down without any agitated behavior. Timid behavior. Speech: Patient's speech is goal-directed and nonpressured. soft tone. Mood/Affect: Patient reports her mood is depressed, affect is congruent Suicidality/Homicidality: Patient denies any homicidal or suicidal ideation, denies any plans at this time. Perceptions: Patient denies any visual or auditory hallucinations. Though content/process: Logical, goal oriented. Memory and concentration: AOX3, grossly intact for the purposes of this session. Judgment and insight: Limited. IMPRESSIONS: Depressive disorder unspecified, rule out bipolar depression Cannabis use disorder, mild Plan: -At this time patient DOES meet criteria for inpatient psychiatric admission. -Would recommend the following medication changes/additions: Will discontinue Depakote at this time due to patient's age and possibility of future as Depakote would be teratogenic. Patient is agreeable to start Lamictal 25 mg twice a day with plan to titrate up for mood stabilization/depression. Will start trazodone 50 mg daily at bedtime for sleep/mood. -Continue 1:1 sitter for safety -Cannot leave AMA at this time. Patient will need a petition and certification if attempting to leave AMA. -When medically stable and patient has received her doses of Mucomyst, patient will be eligible for transfer to a psych bed when available. -Psychiatry will sign off at this point, please contact with any questions. 09/17/19 13:01 09/17/19 13:08
[2019-09-17] MEDS: lamoTRIgine 25 MG TAB PO SCH ×2 (15:43→21:21)
[2019-09-17 17:21] LABS: ALT 16 U/L (4-34); AST 21 U/L (14-36); African American GFR (CKD) >90 (>60 ml/min/1.73 sqM); Albumin 3.6 g/dL (3.5-5.0); Alkaline Phosphatase 37 U/L (38-126); Anion Gap 8 mmol/L; Blood Urea Nitrogen 6 mg/dL (7-17); Calcium 8.8 mg/dL (8.4-10.2); Carbon Dioxide 20 mmol/L (22-30); Chloride 109 mmol/L (98-107); Glucose 85 mg/dL (74-99); Non-African American GFR(CKD) >90 (>60 ml/min/1.73 sqM); Potassium 4.7 mmol/L (3.5-5.1); Sodium 137 mmol/L (137-145); Total Bilirubin 0.2 mg/dL (0.2-1.3); Total Protein 6.3 g/dL (6.3-8.2)
[2019-09-17] MEDS ORDERED: traZODone HCL 50 MG TAB PO SCH (21:00)
[2019-09-18] MEDS: ACETYLCYSTEINE 6,000 MG/30 ML VIAL PO SCH ×4 (03:14→15:00)
[2019-09-18 05:33] LABS: Basophils % (A) 0 %; Eosinophils # (A) 0.1 k/uL (0-0.7); Eosinophils % (A) 1 %; HCT 35.2 % (34.0-46.0); HGB 11.7 gm/dL (11.4-16.0); Lymphocytes # (A) 2.7 k/uL (1.0-4.8); Lymphocytes % (A) 45 %; MCHC 33.4 g/dL (31.0-37.0); MCV 89.8 fL (80.0-100.0); Mean Platelet Volume 8.8; Monocytes # (A) 0.2 k/uL (0-1.0); Monocytes % (A) 4 %; Neutrophils # (A) 2.9 k/uL (1.3-7.7); Neutrophils % (A) 48 %; Platelet Count 176 k/uL (150-450); RBC 3.92 m/uL (3.80-5.40); RDW 12.2 % (11.5-15.5)
[2019-09-18 05:39] LABS: ALT 16 U/L (4-34); AST 20 U/L (14-36); African American GFR (CKD) >90 (>60 ml/min/1.73 sqM); Albumin 3.5 g/dL (3.5-5.0); Alkaline Phosphatase 34 U/L (38-126); Anion Gap 7 mmol/L; Blood Urea Nitrogen 4 mg/dL (7-17); Calcium 8.9 mg/dL (8.4-10.2); Carbon Dioxide 20 mmol/L (22-30); Chloride 108 mmol/L (98-107); Glucose 81 mg/dL (74-99); Magnesium 1.7 mg/dL (1.6-2.3); Non-African American GFR(CKD) >90 (>60 ml/min/1.73 sqM); Phosphorus 3.5 mg/dL (2.5-4.5); Potassium 4.4 mmol/L (3.5-5.1); Sodium 135 mmol/L (137-145); Total Bilirubin 0.3 mg/dL (0.2-1.3); Total Protein 6.1 g/dL (6.3-8.2)
[2019-09-18] MEDS: lamoTRIgine 25 MG TAB PO SCH (08:25)
[2019-09-18 09:44] VITALS: RESP 16; TEMP 98.1
[2019-09-18 13:09] VITALS: BP 103/56; PULSE 69
--- NOTE | 2019-09-19 14:46 | P.DS ---
Providers Date of admission: 09/16/19 16:09 Expected date of discharge: 09/18/19 Attending physician: Lizzie Goldsmith DO Consults: 09/17/19 10:16 Consult Physician Routine Consulting Provider: Rigo Andrade Consult Reason/Comments: overdose Do you want consulting provider notified?: Already Contacted Primary care physician: Stated None Hospital Course: 19-year-old female presented to the hospital because she took about 30 tablets of acetaminophen. She has been more depressed lately and having lots of difficulties in life and because of that she took the Tylenol. The patient reports that her depression started getting worse in April 2019 after she lost her best friend apparently to suicide. She currently denies having any abdominal pain, no nausea or vomiting. No fevers or chills. No recent illness. No diarrhea. Her peak acetaminophen level was 91 so it was decided to admit her to the medical floor for acetylcysteine treatment and to get follow-up LFTs and acetaminophen levels. Upon admission follow-up LFTs remain normal. She was continued on acetylcysteine treatment per protocol. She did not have any new symptoms during the admission. No pain. No shortness of breath. She was seen by psychiatry who advised inpatient psychiatric admission. Patient was discharged to the psychiatric [facility] for further care. Plan - Discharge Summary Discharge Rx Participant: No New Discharge Prescriptions: New traZODone HCL [Desyrel] 50 mg PO HS tab lamoTRIgine [LaMICtal] 25 mg PO BID tab Melatonin 3 mg PO HS PRN tablet PRN Reason: Insomnia Acetylcysteine [Mucomyst] 4,000 mg PO Q4H vial Discontinued Control (Unknown) 1 tab PO DAILY Discharge Medication List Acetylcysteine [Mucomyst] 4,000 mg PO Q4H vial 09/18/19 [Rx] Melatonin 3 mg PO HS PRN tablet 09/18/19 [Rx] lamoTRIgine [LaMICtal] 25 mg PO BID tab 09/18/19 [Rx] traZODone HCL [Desyrel] 50 mg PO HS tab 09/18/19 [Rx] Discharge Disposition: TRANSFER TO PSYCH HOSP/UNIT
--- NOTE | 2019-09-19 14:49 | P.MDCNMH ---
History of Present Illness H&P Date: 09/19/19 Chief Complaint: Suicide attempt 19-year-old female presented to the hospital because she took about 30 tablets of acetaminophen. She has been more depressed lately and having lots of difficulties in life and because of that she took the Tylenol. The patient reports that her depression started getting worse in April 2019 after she lost her best friend apparently to suicide. Patient was admitted to the medical floor for acetylcysteine treatment, did well, follow-up LFTs remained normal. Currently patient is feeling well, no pain, no shortness of breath. No fevers or chills. Review of Systems Complete review of system performed, pertinent positives per HPI, otherwise negative Past Medical History Past Medical History: No Reported History History of Any Multi-Drug Resistant Organisms: None Reported Past Surgical History: Adenoidectomy, Tonsillectomy Past Anesthesia/Blood Transfusion Reactions: No Reported Reaction Past Psychological History: No Psychological Hx Reported, Bipolar, Depression Smoking Status: Never smoker Past Alcohol Use History: None Reported Past Drug Use History: Marijuana Additional Drug Use History / Comment(s): vaping - Past Family History Mother Family Medical History: Musculoskeletal Disorder Medications and Allergies Home Medications Medication Instructions Recorded Confirmed Type Acetylcysteine [Mucomyst] 4,000 mg PO Q4H vial 09/18/19 09/18/19 Rx Melatonin 3 mg PO HS PRN tablet 09/18/19 09/18/19 Rx lamoTRIgine [LaMICtal] 25 mg PO BID tab 09/18/19 09/18/19 Rx traZODone HCL [Desyrel] 50 mg PO HS tab 09/18/19 09/18/19 Rx Allergies Allergy/AdvReac Type Severity Reaction Status Date / Time No Known Allergies Allergy Verified 09/18/19 14:15 Physical Exam Constitutional: No acute distress, conversant, pleasant Eyes:Anicteric sclerae, moist conjunctiva, no lid-lag, PERRLA, ENMT: Oropharynx clear, no erythema, exudates Neck: Supple, FROM, no masses, or JVD, No carotid bruits, No thyromegaly Lungs: Clear to auscultation, Clear to percussion, Normal respiratory effort, no accessory muscle use Cardiovascular: Heart regular in rate and rhythm, No murmurs, gallops, or rubs, No peripheral edema Abdominal: Soft, Nontender, no guarding, rebound or rigidity, Normoactive bowel sounds, No hepatomegaly, No splenomegaly, No palpable mass Skin: Normal temperature, tone, texture, turgor, no induration, No subcutaneous nodules, No rash, lesions, No ulcers Extremities: No digital cyanosis, No clubbing, Pedal pulses intact and symmetrical, Radial pulses intact and symmetrical, No calf tenderness Psychiatric: Alert and oriented to person, place and time, appropriate affect, intact judgement Neuro: Muscles Strength 5/5 in all 4 extremities, Sensation to light touch gr ossly present throughout, Cranial nerves II-XII grossly intact, no focal sensory deficits Cranial Nerve Examination - Cranial Nerves Cranial Nerve II- Optic: Intact Cranial Nerve III- Oculomotor: Intact Cranial Nerve IV- Trochlear: Intact Cranial Nerve V- Trigeminal: Intact Cranial Nerve - Abducens: Intact Cranial Nerve VII- Facial: Intact Cranial Nerve VIII- Auditory: Intact Cranial Nerve IX- Glossopharyngeal: Intact Cranial Nerve X- Vagus: Intact Cranial Nerve XI- Accessory: Intact Cranial Nerve XII- Hypoglossal: Intact Results CBC & Chem 7: 09/18/19 05:11 09/18/19 05:11 Assessment and Plan Plan: Acetaminophen toxicity Continue acetylcysteine treatment orally per protocol Supportive care Depression and bipolar disorder Management per psychiatry Insomnia Continue melatonin 3 mg by mouth daily at bedtime when necessary
== END 2019-09-18 15:02 | DRG 918 ==
LOC: 3SCARD 16:09
PROVIDERS: ADMIT Internal Medicine; ATTEND Internal Medicine
DX: T39.1X1A Poisoning by 4-Aminophenol derivatives, accidental (unintentional), initial encounter (principal); F32.9 Major depressive disorder, single episode, unspecified; G47.00 Insomnia, unspecified; Z79.3 Long term (current) use of hormonal contraceptives
CPT/HCPCS: 80053; 80329; 83735; 84100; 84443; 85025

== ENCOUNTER 2019-09-18 14:00 | Inpatient (IN) | payer OTHER ==
[2019-09-18] MEDS ORDERED: ACETAMINOPHEN TAB 325 MG TAB PO PRN (14:57)
[2019-09-18] MEDS ORDERED: ZIPRASIDONE 20 MG VIAL IM PRN (14:57)
[2019-09-18] MEDS ORDERED: MAG HYDROX/AL HYDROX/SIMETH 30 ML CUP PO PRN (14:57)
[2019-09-18] MEDS ORDERED: MAGNESIUM HYDROXIDE 2,400 MG/10 ML CUP PO PRN (14:57)
[2019-09-18] MEDS ORDERED: MELATONIN 3 MG TABLET PO PRN (15:02)
[2019-09-18] MEDS: ACETYLCYSTEINE 6,000 MG/30 ML VIAL PO SCH ×3 (16:56→23:26)
[2019-09-18] MEDS: traZODone HCL 50 MG TAB PO SCH (20:50)
[2019-09-18] MEDS: lamoTRIgine 25 MG TAB PO SCH (20:50)
[2019-09-19] MEDS: ACETYLCYSTEINE 6,000 MG/30 ML VIAL PO SCH ×4 (04:56→15:07)
[2019-09-19] MEDS: lamoTRIgine 25 MG TAB PO SCH ×2 (08:19→21:17)
[2019-09-19 08:24] LABS: Basophils % (A) 0 %; Eosinophils # (A) 0.1 k/uL (0-0.7); Eosinophils % (A) 2 %; HCT 39.9 % (34.0-46.0); HGB 13.5 gm/dL (11.4-16.0); Lymphocytes # (A) 2.7 k/uL (1.0-4.8); Lymphocytes % (A) 43 %; MCH 29.9 pg (25.0-35.0); MCHC 33.7 g/dL (31.0-37.0); MCV 88.7 fL (80.0-100.0); Mean Platelet Volume 8.7; Monocytes # (A) 0.2 k/uL (0-1.0); Monocytes % (A) 4 %; Neutrophils % (A) 48 %; Platelet Count 196 k/uL (150-450); RDW 12.1 % (11.5-15.5); WBC 6.2 k/uL (3.8-10.6)
--- NOTE | 2019-09-19 11:23 | P.HP ---
Psychiatric H&P - . H&P Date: 09/19/19 History & Physical: Allergies IDENTIFYING DATA: This patient is a 19-year-old single female who was transferred to the mental health unit from the medical unit where she was stabilized medically. HISTORY OF PRESENT ILLNESS: The patient initially presented to ER after taking an overdose on Tylenol PM. The patient could not tell up how much of Tylenol she took but her acetaminophen level was 91. The patient was admitted to the mental health unit but had to be transferred to the medical unit for her Mucomyst treatment and IV fluids. The patient completed her treatment and was transferred back to the mental health unit to continue her psychiatric care. The patient reports a long history of depression. She reports having dysphoric mood and frequent crying spells. The patient reports that her depression started getting worse in April 2019 after she lost her best friend apparently to suicide. The patient suspects that it wasn't a suicide and was followed plate. The patient reports poor sleep at night and reports difficulty falling asleep. She reports sleeping during the day. The patient reports fair appetite and reports some weight gain but not significant recently. The patient reports feelings of hopelessness and helplessness. The patient also reports feeling lonely all the time and has limited social support. The patient also has history of chronic suicidal ideations but has never attempted suicide until just prior to this admission. The patient also reports a history of some impulsivity. She reports having shopping sprees. She also reports traveling without plans. The patient reports having anger issues and throws things when angry. The patient has history of self-mutilation and reports that she started cutting in middle school but stopped area the patient reports that she was cutting until a month ago but denies any intentions or urges to do that anymore. She denies any history of euphoric episodes. The patient denies any auditory or visual hallucinations. She denies any active homicidal or paranoid ideations at this time. The patient is still reports having suicidal ideations but denies any intentions or plans to harm herself or someone else at this time. The patient was recently started on Lamictal on the medical floor by the consulting psychiatrist, Dr. Andrade. The patient reports tolerating medications without any significant side effects at this time. PAST PSYCHIATRIC HISTORY: Past hospitalizations: 1 Suicidal attempts: 1 Medications: None PAST MEDICAL HISTORY: Asthma. ALLERGIES: No known drug allergies. CHEMICAL DEPENDENCY HISTORY: Alcohol: The patient admits to occasional drinking but reports that she does not like to drink and does not drink excessively. Marijuana: The patient reports occasional use of marijuana. She reports on and off for use of marijuana since 2016 and last used more than a month ago. Cocaine: The patient admitted to using cocaine times one Rehab: None FAMILY PSYCHIATRIC HISTORY: The patient reports that her mom is diagnosed with bipolar disorder and has history of alcohol abuse and is not drinking anymore. The patient also reports that her maternal and is bipolar. FAMILY CHEMICAL DEPENDENCY HISTORY:[ The patient reports a strong family history of alcohol abuse on her mom's side of the family. She reports mother was an alcoholic but is not drinking anymore. The patient reports that her uncles and aunts on maternal side have history of alcohol abuse. LEGAL HISTORY: Denies. SOCIAL HISTORY: The patient was born and raised in [place]. She reports that her parents before she was born. The patient graduated from [employer]. The patient is currently unemployed but is helping her mother who lives next door and is suffering from MS. The patient reports a stressful childhood because of mother's illness. She denies any history of abuse. The patient is currently in a relationship for last 2 months and reports good relationship with her boyfriend. MENTAL STATUS EXAM: General Appearance: Patient appears to be stated age is alert, directable. Patient has fair eye contact. Behavior: Patient is seated without any agitated behavior. Appears to be anxious Speech: Patient's speech is goal-directed and nonpressured. soft tone. Mood/Affect: Patient reports her mood is depressed, affect is congruent Suicidality/Homicidality: Patient reports having suicidal ideation but denies any plans at this time. Perceptions: Patient denies any visual or auditory hallucinations. Though content/process: Logical Memory and concentration: AOX3, grossly intact for the purposes of this session. Judgment and insight: Limited. Allergy/AdvReac Type Severity Reaction Status Date / Time No Known Allergies Allergy Verified 09/18/19 14:15 Vital Signs Temp 98.3 F 09/19/19 06:24 Pulse 72 09/19/19 06:24 Resp 16 09/19/19 06:24 BP 100/64 09/19/19 06:24 Pulse Ox 98 09/18/19 19:48 Intake & Output 09/18/19 09/19/1909/18/20 18:59 06:59 18:59 Weight 59.1 kg Laboratory Last Values WBC 6.2 k/uL (3.8-10.6) 09/19/19 07:32 RBC 4.50 m/uL (3.80-5.40) 09/19/19 07:32 Hgb 13.5 gm/dL (11.4-16.0) 09/19/19 07:32 Hct 39.9 % (34.0-46.0) 09/19/19 07:32 MCV 88.7 fL (80.0-100.0) 09/19/19 07:32 MCH 29.9 pg (25.0-35.0) 09/19/19 07:32 MCHC 33.7 g/dL (31.0-37.0) 09/19/19 07:32 RDW 12.1 % (11.5-15.5) 09/19/19 07:32 Plt Count 196 k/uL (150-450) 09/19/19 07:32 Neutrophils % 48 % 09/19/19 07:32 Lymphocytes % 43 % 09/19/19 07:32 Monocytes % 4 % 09/19/19 07:32 Eosinophils % 2 % 09/19/19 07:32 Basophils % 0 % 09/19/19 07:32 Neutrophils # 3.0 k/uL (1.3-7.7) 09/19/19 07:32 Lymphocytes # 2.7 k/uL (1.0-4.8) 09/19/19 07:32 Monocytes # 0.2 k/uL (0-1.0) 09/19/19 07:32 Eosinophils # 0.1 k/uL (0-0.7) 09/19/19 07:32 Basophils # 0.0 k/uL (0-0.2) 09/19/19 07:32 09/19/19 11:15 Assessment and Plan Assessment: IMPRESSIONS: Bipolar disorder depressive episode with suicidal ideations. Plan: Admit to the mental health unit. Placed on suicidal precautions and 15 minute checks for safety. Consults internal medicine team for history and physical and management of medical problems. Provide the patient individual, group therapy, substance use disorder counseling to give better insight and learn coping skills. Medications: Continue patient on Lamictal 25 mg mg by mouth once a day. Continue patient on melatonin 3 mg by mouth daily at bedtime when necessary Continue trazodone 50 mg by mouth daily at bedtime when necessary. Adjust medications and monitor closely for the patient's symptoms getting worse and /or possible side effects on medications. Discharge patient to OUTPATIENT services upon a stabilization Expected LOS: 3-5 days
[2019-09-19] MEDS: traZODone HCL 50 MG TAB PO SCH (21:17)
[2019-09-20] MEDS: lamoTRIgine 25 MG TAB PO SCH ×2 (08:45→21:13)
--- NOTE | 2019-09-20 12:30 | P.PN ---
Subjective Progress Note Date: 09/20/19 The patient seen in the chart was reviewed. The patient continues to show slow improvement in mood and functioning. She attends the milieu therapy. She denies any crying spells or panic. The patient reports improvement in mood and functioning. The patient reports fair sleep and appetite. She denies any auditory or visual hallucinations. She denies any active suicidal or homicidal ideations at this time. Objective - Vital Signs Vital signs: Vital Signs Temp 98.4 F 09/20/19 12:00 Pulse 58 L 09/20/19 06:20 Resp 17 09/20/19 06:20 BP 107/65 09/20/19 06:20 Pulse Ox 98 09/20/19 06:20 - Exam Mental Status Exam: General Appearance: Patient appears to be stated age is alert, directable. Patient has good eye contact. Behavior: Patient is seated without any agitated behavior. Speech: Patient's speech is goal-directed and nonpressured. soft tone. Mood/Affect: Patient reports their mood/anxiety is good, affect is congruent Suicidality/Homicidality: Patient denies any suicidal or homicidal ideations at this time. Perceptions: Patient reports auditory hallucinations. Though content/process: Paranoia Memory and concentration: AOX3, grossly intact for the purposes of this session. Judgment and insight: Limited - Labs CBC & Chem 7: 09/19/19 07:32 Assessment and Plan Assessment: IMPRESSIONS: Bipolar disorder depressive episode with suicidal ideations. Plan: Admit to the mental health unit. Placed on suicidal precautions and 15 minute checks for safety. Consults internal medicine team for history and physical and management of medical problems. Provide the patient individual, group therapy, substance use disorder counseling to give better insight and learn coping skills. Medications: Continue patient on Lamictal 25 mg mg by mouth once a day. Continue patient on melatonin 3 mg by mouth daily at bedtime when necessary Continue trazodone 50 mg by mouth daily at bedtime when necessary. Adjust medications and monitor closely for the patient's symptoms getting worse and /or possible side effects on medications. Discharge patient to OUTPATIENT services upon a stabilization Expected LOS: 3-5 days
[2019-09-20] MEDS: traZODone HCL 50 MG TAB PO SCH (21:13)
[2019-09-21] MEDS: lamoTRIgine 25 MG TAB PO SCH ×2 (08:54→21:12)
--- NOTE | 2019-09-21 09:26 | P.PN ---
Progress Note - Text Progress Note Date: 09/21/19 Interval history: Patient was seen wandering the hallways and was directable and agreeable to s peak with conventional underwriter. Patient claims that her mood has been gradually improving on the current medications. She states that she is feeling less irritable and agitated at times. She claims that she slept her at the night on the trazodone. She was focused on discharge and states that possibly Monday she'll be released. She claims that she has been going to groups and participating as best as she can. Patient continues to be somewhat guarded during conversation however is directable and appropriate. At this time patient denies any suicidal or homicidal ideations intent or plan. Denies any Auditory or visual hallucinations. Patient denies any side effects from the medications and has been compliant with meds. Mental status exam: General Appearance: Patient appears to be stated age is alert, directable, and attempts to be cooperative. Improved hygiene. Behavior: No agitated behavior. Patient is calm and directable Speech: Patient's speech is fluent and nonpressured. Mood/Affect: Mood is improving mildly, affect is congruent and constricted. Suicidality/Homicidality: Patient denies having any suicidal or homicidal ideation intent or plan. Perceptions: Patient denies any auditory or visual hallucinations. Though content/process: There is no evidence of any delusional thought content and thought process is linear and goal-directed. Somewhat guarded. Memory and concentration: AOX3, grossly intact for the purposes of this session Judgment and insight: improving mildly Assessment/Plan: Continue with current diagnosis. Patient continues to meet criteria for inpatient psychiatric admission for symptom stabilization and safety. Will increase Lamictal to 50 mg twice a day for mood stabilization/depression. Monitor for medication compliance and for any psychotropic medication side effects. Will continue to monitor ongoing response to treatment. Encouraged participation in milieu.
[2019-09-21] MEDS: valACYclovir HCL 1,000 MG TABLET PO SCH ×2 (14:45→22:08)
[2019-09-21] MEDS: traZODone HCL 50 MG TAB PO SCH (21:12)
[2019-09-22 07:19] VITALS: RESP 16
[2019-09-22] MEDS: lamoTRIgine 25 MG TAB PO SCH ×2 (08:43→21:10)
[2019-09-22] MEDS ORDERED: DESOGESTREL PO SCH (09:00)
[2019-09-22] MEDS ORDERED: ETHINYL ESTRADIOL PO SCH (09:00)
--- NOTE | 2019-09-22 09:49 | P.PN ---
Progress Note - Text Progress Note Date: 09/22/19 Interval history: Patient was seen participating in group this morning and was directable and a greeable to speak with script writer. Patient denies any overnight complaints and appear to be more polite and cooperative with script writer. She claims that her mood has been improving on the current medications and would like to leave her current medications the way they are. She states that she is feeling less irritable today. She spoke about the topic in group about "bedbugs" and states that she didn't want to talk about it because it grossed her out. She claims that she slept her at the night on the trazodone. At this time patient denies any suicidal or homicidal ideations intent or plan. Denies any Auditory or visual hallucinations. Patient denies any side effects from the medications and has been compliant with meds. Patient states that she has been monitoring her skin and denies any rashes at this time. Mental status exam: General Appearance: Patient appears to be stated age is alert, directable, and is more cooperative. Improved hygiene. Behavior: No agitated behavior. Patient is calm and directable Speech: Patient's speech is fluent and nonpressured. Mood/Affect: Mood is improving mildly, affect is congruent and constricted. Suicidality/Homicidality: Patient denies having any suicidal or homicidal ideation intent or plan. Perceptions: Patient denies any auditory or visual hallucinations. Though content/process: There is no evidence of any delusional thought content and thought process is linear and goal-directed. More future oriented. Memory and concentration: AOX3, grossly intact for the purposes of this session Judgment and insight: improving mildly Assessment/Plan: Continue with current diagnosis. Patient continues to meet criteria for inpatient psychiatric admission for symptom stabilization and safety. Continue with Lamictal to 50 mg twice a day for mood stabilization/depression. Monitor for medication compliance and for any psychotropic medication side effects. Will continue to monitor ongoing response to treatment. Encouraged participation in milieu.
[2019-09-22] MEDS: ETHINYL ESTRADIOL PO SCH (14:14)
[2019-09-22] MEDS: DESOGESTREL PO SCH (14:14)
[2019-09-22] MEDS: traZODone HCL 50 MG TAB PO SCH (21:10)
[2019-09-23 07:21] VITALS: BP 102/60; PULSE 70
[2019-09-23] MEDS: lamoTRIgine 25 MG TAB PO SCH (08:04)
[2019-09-23 13:17] VITALS: TEMP 98.3
[2019-09-23] MEDS: ETHINYL ESTRADIOL PO SCH (13:58)
[2019-09-23] MEDS: DESOGESTREL PO SCH (13:58)
--- NOTE | 2019-09-23 14:17 | P.PN ---
Subjective Progress Note Date: 09/23/19 Discharge Note: Patient was seen and chart was reviewed. Case discussed with staff. The patient reports doing better and denies any new problems at this time. She admits to fair energy and fair appetite. She reports good sleep and appetite. At this time patient denies any suicidal or homical ideations, intent or plan. Patient denies any auditory, visual hallucinations and denies any paranoia or delusions. Patient denies any side effects from the medications and has been compliant with meds. Objective - Vital Signs Vital signs: Vital Signs Temp 98.3 F 09/23/19 12:00 Pulse 70 09/23/19 06:53 Resp 16 09/23/19 06:53 BP 102/60 09/23/19 06:53 Pulse Ox 99 09/21/19 08:00 Intake & Output 09/22/19 09/23/19 09/23/19 18:59 06:59 18:59 Weight 58.7 kg - Exam Mental Status Exam: General Appearance: Patient appears to be stated age is alert, directable. fair hygiene and grooming. Patient has improving eye contact. Behavior: Patient is seated without any agitated behavior. Speech: Patient's speech is fluent and nonpressured. soft tone. Mood/Affect: Patient reports their mood/anxiety is improving, affect is congruent Suicidality/Homicidality: Patient denies having any suicidal or homicidal ideation intent or plan. Perceptions: Patient denies any auditory or visual hallucinations. Though content/process: There is no evidence of any delusional thought content and thought process is linear and goal-directed. Memory and concentration: AOX3, grossly intact for the purposes of this session. Judgment and insight: mildly improving. - Labs CBC & Chem 7: 09/19/19 07:32 Assessment and Plan Assessment: IMPRESSIONS: Bipolar disorder depressive episode with suicidal ideations. Plan: Plan: Precautions: Continue 15 minutes check for safety. Provide the patient individual, group therapy, substance use disorder counseling to give better insight and learn coping skills. Medications: Continue Lamictal 50 mg by mouth twice a day. Continue trazodone 50 mg by mouth daily at bedtime. Discharge patient to OUTPATIENT services today. Follow-up as an outpatient.
--- NOTE | 2019-09-23 14:32 | P.DS ---
Providers Date of admission: 09/18/19 14:00 Attending physician: Tia Waller MD Consults: 09/18/19 14:57 Consult Physician Routine Consulting Provider: Hal Physician Consult Reason/Comments: H & P and medical care Do you want consulting provider notified?: Yes Primary care physician: Stated None Hospital Course: IDENTIFYING DATA: This patient is a 19-year-old single female who was transferred to the mental health unit from the medical unit where she was stabilized medically. HISTORY OF PRESENT ILLNESS: The patient initially presented to ER after taking an overdose on Tylenol PM. The patient could not tell up how much of Tylenol she took but her acetaminophen level was 91. The patient was admitted to the mental health unit but had to be transferred to the medical unit for her Mucomyst treatment and IV fluids. The patient completed her treatment and was transferred back to the mental health unit to continue her psychiatric care. The patient reports a long history of depression. She reports having dysphoric mood and frequent crying spells. The patient reports that her depression started getting worse in April 2019 after she lost her best friend apparently to suicide. The patient suspects that it wasn't a suicide and was followed plate. The patient reports poor sleep at night and reports difficulty falling asleep. She reports sleeping during the day. The patient reports fair appetite and reports some weight gain but not significant recently. The patient reports feelings of hopelessness and helplessness. The patient also reports feeling lonely all the time and has limited social support. The patient also has history of chronic suicidal ideations but has never attempted suicide until just prior to this admission. The patient also reports a history of some impu lsivity. She reports having shopping sprees. She also reports traveling without plans. The patient reports having anger issues and throws things when angry. The patient has history of self-mutilation and reports that she started cutting in middle school but stopped area the patient reports that she was cutting until a month ago but denies any intentions or urges to do that anymore. She denies any history of euphoric episodes. The patient denies any auditory or visual hallucinations. She denies any active homicidal or paranoid ideations at this time. The patient is still reports having suicidal ideations but denies any intentions or plans to harm herself or someone else at this time. The patient was recently started on Lamictal on the medical floor by the consulting psychiatrist, Dr. Andrade. The patient reports tolerating medications without any significant side effects at this time. PAST PSYCHIATRIC HISTORY: Past hospitalizations: 1 Suicidal attempts: 1 Medications: None PAST MEDICAL HISTORY: Asthma. ALLERGIES: No known drug allergies. CHEMICAL DEPENDENCY HISTORY: Alcohol: The patient admits to occasional drinking but reports that she does not like to drink and does not drink excessively. Marijuana: The patient reports occasional use of marijuana. She reports on and off for use of marijuana since 2016 and last used more than a month ago. Cocaine: The patient admitted to using cocaine times one Rehab: None FAMILY PSYCHIATRIC HISTORY: The patient reports that her mom is diagnosed with bipolar disorder and has history of alcohol abuse and is not drinking anymore. The patient also reports that her maternal and is bipolar. FAMILY CHEMICAL DEPENDENCY HISTORY:[ The patient reports a strong family history of alcohol abuse on her mom's side of the family. She reports mother was an alcoholic but is not drinking anymore. The patient reports that her uncles and aunts on maternal side have history of alcohol abuse. LEGAL HISTORY: Denies. SOCIAL HISTORY: The patient was born and raised in [place]. She reports that her parents before she was born. The patient graduated from high school. The patient is currently unemployed but is helping her mother who lives next door and is suffering from MS. The patient reports a stressful childhood because of mother's illness. She denies any history of abuse. The patient is currently in a relationship for last 2 months and reports good relationship with her boyfriend. MENTAL STATUS EXAM: General Appearance: Patient appears to be stated age is alert, directable. Patient has fair eye contact. Behavior: Patient is seated without any agitated behavior. Speech: Patient's speech is goal-directed and nonpressured. soft tone. Mood/Affect: Patient reports her mood is good, affect is congruent Suicidality/Homicidality: Patient reports having suicidal ideation but denies any plans at this time. Perceptions: Patient denies any visual or auditory hallucinations. Though content/process: Logical Memory and concentration: AOX3, grossly intact for the purposes of this session. Judgment and insight: Fair The patient was cooperative and compliant with the treatment. The patient attended and participated in milieu therapy. Based the patient continued to report slow improvement in mood and functioning. The patient denied any suicidal or homicidal ideations. Discharge plans were initiated and a family meeting was done via phone with her mother. The patient's condition was stabilized and the patient was discharged home on 09/23/2019 with plans to foll ow-up as an outpatient. The patient was on following medications at the time of discharge. Lamictal 50 mg by mouth twice a day. Trazodone 50 mg by mouth daily at bedtime when necessary. Follow-up appointment was made for patient to follow-up as an outpatient at [facility]. Assessment: IMPRESSIONS: Bipolar disorder depressive episode with suicidal ideations. Patient Condition at Discharge: Stable Plan - Discharge Summary Discharge Rx Participant: No New Discharge Prescriptions: Continue traZODone HCL [Desyrel] 50 mg PO HS 30 Days #30 tab lamoTRIgine [LaMICtal] 25 mg PO BID #60 tab Discontinued Melatonin 3 mg PO HS PRN tablet PRN Reason: Insomnia Acetylcysteine [Mucomyst] 4,000 mg PO Q4H vial Discharge Medication List lamoTRIgine [LaMICtal] 25 mg PO BID #60 tab 09/23/19 [Rx] traZODone HCL [Desyrel] 50 mg PO HS 30 Days #30 tab 09/23/19 [Rx] Follow up Appointment(s)/Referral(s): [facility] [Outside] - 09/30/19 11:00 am (Madeleine Causey) Patient Instructions/Handouts: Bipolar Disorder (DC) Activity/Diet/Wound Care/Special Instructions: Activity and diet as tolerated. Avoid the use of street drugs and alcohol. Take all medications as prescribed. When you are in need of refills on your medications please contact your medical provider and/or outpatient psychiatrist to have this done. Please go to scheduled outpatient appointment for aftercare treatment. If symptoms return or become worse, call the crisis line at and/or go to the nearest emergency room for evaluation. Pt needs meds adjusted in 2 weeks per psychiatrist.
== END 2019-09-23 14:42 | disposition home or self-care (01) | DRG 885 ==
LOC: 3MHU 14:00
PROVIDERS: ADMIT Psychiatry & Neurology Psychiatry; ATTEND Psychiatry & Neurology Psychiatry
DX: F31.9 Bipolar disorder, unspecified (principal); F12.90 Cannabis use, unspecified, uncomplicated; F14.90 Cocaine use, unspecified, uncomplicated; J45.909 Unspecified asthma, uncomplicated; Z81.1 Family history of alcohol abuse and dependence; Z91.5 Personal history of self-harm
CPT/HCPCS: 85025

== ENCOUNTER 2019-10-10 07:29 | Emergency (ER) | payer OTHER ==
[2019-10-10 07:37] VITALS: BP 128/82; PULSE 111; RESP 18; TEMP 100.9
[2019-10-10] MEDS ORDERED: ACETAMINOPHEN TAB 500 MG TAB PO STA (07:56)
[2019-10-10] MEDS ORDERED: predniSONE 20 MG TAB PO STA (07:57)
[2019-10-10] MEDS ORDERED: IBUPROFEN 600 MG TAB PO STA (08:01)
--- NOTE | 2019-10-10 08:10 | ED ---
General Adult HPI - General Chief complaint: Upper Respiratory Infection Stated complaint: Swollen lips, poss allergic reaction Time Seen by Provider: 10/10/19 07:37 Source: patient, RN notes reviewed Mode of arrival: ambulatory Limitations: no limitations - History of Present Illness Initial comments: 19-year-old female with a past psychiatric history presents to the emergency department for a chief complaint of rash. Patient states the rash started yesterday. States it is all over her body. States her eyelids and lips feel a little bit swollen. Denies any difficulty swallowing. Denies cough congestion or sore throat. Patient states she was tested for strep and Covid yesterday at [facility] which was negative. Patient does admit that she started Lamictal 3 weeks ago for depression and suicidal thoughts. She denies any suicidal thoughts whatsoever at this time.Patient has no other complaints at this time including shortness of breath, chest pain, abdominal pain, nausea or vomiting, headache, or visual changes. - Related Data Previous Rx's Medication Instructions Recorded lamoTRIgine [LaMICtal] 25 mg PO BID #60 tab 09/23/19 traZODone HCL [Desyrel] 50 mg PO HS 30 Days #30 tab 09/23/19 predniSONE 50 mg PO DAILY #5 tablet 10/10/19 Allergies Allergy/AdvReac Type Severity Reaction Status Date / Time No Known Allergies Allergy Verified 10/10/19 07:37 Review of Systems ROS Statement: Those systems with pertinent positive or pertinent negative responses have been documented in the HPI. ROS Other: All systems not noted in ROS Statement are negative. Past Medical History Past Medical History: No Reported History History of Any Multi-Drug Resistant Organisms: None Reported Past Surgical History: Adenoidectomy, Tonsillectomy Additional Past Surgical History / Comment(s): wisdom teeth Past Anesthesia/Blood Transfusion Reactions: No Reported Reaction Past Psychological History: No Psychological Hx Reported, Bipolar, Depression Smoking Status: Never smoker Past Alcohol Use History: None Reported Past Drug Use History: Marijuana - Past Family History Mother Family Medical History: Musculoskeletal Disorder General Exam Limitations: no limitations General appearance: alert, in no apparent distress Head exam: Present: atraumatic, normocephalic, normal inspection Eye exam: Present: normal appearance, PERRL, EOMI. Absent: scleral icterus, con junctival injection, periorbital swelling, other (No obvious edema.) ENT exam: Present: normal exam, normal oropharynx (No desquamation. No obvious edema of the lips tongue or throat.), mucous membranes moist, TM's normal bilaterally, normal external ear exam Neck exam: Present: normal inspection, full ROM. Absent: tenderness, meningismus, lymphadenopathy Respiratory exam: Present: normal lung sounds bilaterally. Absent: respiratory distress, wheezes, rales, rhonchi, stridor Cardiovascular Exam: Present: regular rate, normal rhythm, normal heart sounds. Absent: systolic murmur, diastolic murmur, rubs, gallop, clicks GI/Abdominal exam: Present: soft, normal bowel sounds. Absent: distended, tenderness, guarding, rebound, rigid Extremities exam: Present: other (No lesions on the palms or soles.) Neurological exam: Present: alert Skin exam: Present: rash (Patient has an erythematous macular rash noted on trunk and extremities. These are blanchable. Negative Nikolsky sign. There is no desquamation of the skin.) Course Vital Signs 10/10/19 07:34 Temperature 100.9 F H Pulse Rate 111 H Respiratory 18 Rate Blood Pressure 128/82 O2 Sat by Pulse 96 Oximetry Medical Decision Making - Medical Decision Making She presents with a low-grade fever of 100.9 and reflected tachycardia of 111. She is well-appearing. I do not notice any edema of the lips or face. She does have a macular rash noted to the trunk and extremities that is blanchable. This could be related to a viral exanthem given fever. However patient also started Lamictal 3 weeks ago and it could be a drug reaction. There is no desquamation of the skin or mucous membranes. No evidence for a Perkins-Dante syndrome. Patient was given Motrin for fever as she has a history of Tylenol overdose. Recommended she discontinue Lamictal as this could be an inciting factor and start steroids. Patient states she was supposed to call her psychiatrist Dr Bain if she developed a rash so I did recommend she call her psychiatrist today and relay this information to her and that we recommended to stop the Lamictal so she can start her on something else. I had a lengthy discussion with patient that she if she has any skin peeling or mucous membrane changes she needs to return immediately to the emergency department. I also just recommended that she has any worsening symptoms with this she should return. Patient is agreeable to this.I discussed this case with attending Dr. Montez who agrees with this assessment and treatment plan. Disposition Clinical Impression: Rash, Fever Disposition: HOME SELF-CARE Condition: Good Instructions (If sedation given, give patient instructions): Acute Rash (ED) Additional Instructions: Please take Motrin for fever. Please discontinue the Lamictal but make sure you speak with your psychiatrist about this. Take steroid as directed. If you are having any worsening symptoms you need to return immediately to the emergency department especially if you have any peeling of your mouth, lips, or skin. Prescriptions: predniSONE 50 mg PO DAILY #5 tablet Is patient prescribed a controlled substance at d/c from ED?: No Referrals: Graciela Forbes MD [Primary Care Provider] - 1-2 days Time of Disposition: 08:03
== END 2019-10-10 08:20 | disposition home or self-care (01) ==
LOC: EC 07:29
DX: R50.9 Fever, unspecified (principal); R21 Rash and other nonspecific skin eruption; R00.0 Tachycardia, unspecified; F32.9 Major depressive disorder, single episode, unspecified; Z79.899 Other long term (current) drug therapy
CPT/HCPCS: 99283; J7512

== ENCOUNTER 2019-10-11 19:06 | Emergency (ER) | payer OTHER ==
[2019-10-11] MEDS ORDERED: methylPREDNISolone SOD SUCCI 125 MG/2 ML VIAL IV STA (19:35)
[2019-10-11] MEDS ORDERED: SODIUM CHLORIDE 0.9% 1,000 ML IV ONE (19:36)
[2019-10-11] MEDS ORDERED: diphenhydrAMINE 50 MG/ML 1 ML VIAL IVP STA (19:36)
[2019-10-11] MEDS ORDERED: FAMOTIDINE 20 MG/2 ML VIAL IV STA (19:36)
[2019-10-11] MEDS ORDERED: SODIUM CHLORIDE 0.9% 1,000 ML IV SCH (19:45)
--- NOTE | 2019-10-11 20:09 | ED ---
Skin/Abscess/FB HPI - General Chief complaint: Skin/Abscess/Foreign Body Stated complaint: revisit- rash Time Seen by Provider: 10/11/19 19:31 Source: patient Mode of arrival: ambulatory Limitations: no limitations - History of Present Illness Initial comments: 19yo female with history of bipolar depression presenting today for cc of rash- revisit. Patient states this month she was placed on lamictal and trazadone for bipolar depression after expressing suicidal ideations. Patient states that 2 days ago she developed a rash that was itching, it was head to toe and her lips were slightly swollen so she came to the ER. Patient denies tongue swelling, cough, vomiting, abdominal pain, diarrhea, fevers. Patient denies blistering of the skin. patient states that she then came to the ER. Patient states her lip is no longer swollen but she the rash seems to have spread, she states at some parts of her body the rash now looks like it has become one big red area. Patient denies blisting, fevers, oral involvement, diarrhea, abdominal pain. Denies any other complaints. Upon arrival patient is afebrile and appears well there is no signs of acute distress. - Related Data Previous Rx's Medication Instructions Recorded lamoTRIgine [LaMICtal] 25 mg PO BID #60 tab 09/23/19 traZODone HCL [Desyrel] 50 mg PO HS 30 Days #30 tab 09/23/19 predniSONE 50 mg PO DAILY #5 tablet 10/10/19 Allergies Allergy/AdvReac Type Severity Reaction Status Date / Time No Known Allergies Allergy Verified 10/11/19 19:12 Review of Systems ROS Statement: Those systems with pertinent positive or pertinent negative responses have been documented in the HPI. ROS Other: All systems not noted in ROS Statement are negative. Past Medical History Past Medical History: No Reported History History of Any Multi-Drug Resistant Organisms: None Reported Past Surgical History: Adenoidectomy, Tonsillectomy Additional Past Surgical History / Comment(s): wisdom teeth Past Anesthesia/Blood Transfusion Reactions: No Reported Reaction Past Psychological History: Bipolar, Depression Smoking Status: Never smoker Past Alcohol Use History: None Reported Past Drug Use History: Marijuana - Past Family History Mother Family Medical History: Musculoskeletal Disorder General Exam - General Exam Comments Initial Comments: General: The patient is awake and alert, in no distress Eye: +3 mm pupils are equal, round and reactive to light, extra-ocular movements are intact. No nystagmus. There is normal conjunctiva bilaterally. No signs of icterus. Ears, nose, mouth and throat: There are moist mucous membranes and no oral lesions. Neck: The neck is supple, there is no tenderness or JVD. Cardiovascular: There is a regular rate and rhythm. No murmur, rub or gallop is appreciated. Respiratory: Lungs are clear to auscultation, respirations are non-labored, breath sounds are equal. No wheezes, stridor, rales, or rhonchi. Gastrointestinal: Soft, non-distended, non-tender abdomen without masses or organomegaly noted. There is no rebound or guarding present. Musculoskeletal: Normal ROM, no tenderness. Strength 5/5. Sensation intact. Radial pulses equal bilaterally 2+. Neurological: A&O x 3. CN II-XII intact grossly, There are no obvious motor or sensory deficits. Coordination appears grossly intact. Speech is normal. Skin: Skin is warm and dry. Diffuse maculopapular rash to the chest, back, abdomen, UE and LE. No oral involvement, no blistering, bullae or open lesions. Blanchable. No warmth. Psychiatric: Cooperative, appropriate mood & affect, normal judgment. Limitations: no limitations Course Vital Signs 10/11/19 10/11/19 19:09 21:22 Temperature 97.9 F 98.3 F Pulse Rate 104 H 74 Respiratory 18 14 Rate Blood Pressure 129/83 107/70 O2 Sat by Pulse 100 99 Oximetry Medical Decision Making - Medical Decision Making 19yo presenting for rash revisit. Drug reaction. Does not appear consistent with SJS/TENS-no oral involvement. No fever. Appears well. Denies suicidal ideations. Evaluated by Dr. Montez who is agreeable to discharge with PCP f/u. Discontinuation of psychiatric medications, patient is to contact psychiatrist today/tomorrow-- Disposition Clinical Impression: Medication reaction, Rash Disposition: HOME SELF-CARE Condition: Good Instructions (If sedation given, give patient instructions): Antibiotic Medication Allergy (ED), General Allergic Reaction (ED) Additional Instructions: Please use medication as discussed. Please follow-up with family doctor in the next 2 days. Discontinue lamitcal/trazadone, speak with psychiatrist, continue steroids--return for fever, sloughing of skin, blistering, blistering in mouth/lips/tongue swelling IMMEDIATELY. Please return to emergency room if the symptoms increase or worsen or for any other concerns. Is patient prescribed a controlled substance at d/c from ED?: No Referrals: Graciela Forbes MD [Primary Care Provider] - 1-2 days Time of Disposition: 20:08
[2019-10-11 21:23] VITALS: BP 107/70; PULSE 74; RESP 14; TEMP 98.3
== END 2019-10-11 21:20 | disposition home or self-care (01) ==
LOC: EC 19:06
DX: R21 Rash and other nonspecific skin eruption (principal); T50.905A Adverse effect of unspecified drugs, medicaments and biological substances, initial encounter; F31.9 Bipolar disorder, unspecified; Z79.899 Other long term (current) drug therapy
CPT/HCPCS: 99283; 96374; 96375 ×2; 96361 ×2; J1200; J2930

== ENCOUNTER → 2019-12-13 | Outpatient (CLI) | payer OTHER ==
--- NOTE | 2019-12-13 11:19 | US ---
EXAMINATION TYPE: US transvaginal DATE OF EXAM: 12/13/2019 COMPARISON: Prior ultrasound 10/19/2016 CLINICAL HISTORY: R10.2 Pelvic and perineal pain. h/o antibiotics to help with pelvic pain, painful i ntercourse, h/o ovarian cysts, A1, on control that has stopped her cycles since Jun 2019 TECHNIQUE: TV. Transvaginal sonographic images Date of LMP: Jun 2019 EXAM MEASUREMENTS: Uterus: 6.7 x 5.7 x 3.8 cm Endometrial Stripe: 0.5 cm Right Ovary: 2.3 x 2.1 x 1.4 cm Left Ovary: 1.6 x 1.4 x 1.1 cm 1. Uterus: Anteverted wnl 2. Endometrium: wnl 3. Right Ovary: wnl 4. Left Ovary: wnl 5. Bilateral Adnexa: wnl 6. Posterior cul-de-sac: wnl IMPRESSION: No significant abnormality is evident
== END | disposition home or self-care (01) ==
LOC: RADUSWWP 10:15
PROVIDERS: ATTEND Obstetrics & Gynecology
DX: R10.2 Pelvic and perineal pain (principal)
CPT/HCPCS: 76830

== ENCOUNTER 2020-02-11 20:48 | Emergency (ER) | payer OTHER ==
[2020-02-11 21:01] VITALS: BP 122/83; PULSE 88; RESP 18; TEMP 99.1
--- NOTE | 2020-02-11 21:34 | ED ---
General Adult HPI - General Chief complaint: Recheck/Abnormal Lab/Rx Stated complaint: COVID Test Time Seen by Provider: 02/11/20 21:03 Source: patient Mode of arrival: ambulatory Limitations: no limitations - History of Present Illness Initial comments: Patient is a 19-year-old male presenting to the emergency department with chief complaint of runny nose and sore throat. Patient states she is here for ankle itself. Patient states she had fever cough and upper respiratory like symptoms for the past week. Patient states she is currently improvement. States her work is requiring her to be tested before she returns. Patient states she continues to the symptoms although they are almost at the end. Patient states the cough is almost completely resolved. Although, she does report continued sinus congestion and sore throat. Denies taking medication to alleviate the symptoms. Denies any known direct covid-19d exposure. Denies any chest pain or shortness of breath. - Related Data Previous Rx's Medication Instructions Recorded lamoTRIgine [LaMICtal] 25 mg PO BID #60 tab 09/23/19 traZODone HCL [Desyrel] 50 mg PO HS 30 Days #30 tab 09/23/19 Allergies Allergy/AdvReac Type Severity Reaction Status Date / Time No Known Allergies Allergy Verified 02/11/20 21:01 Review of Systems ROS Statement: Those systems with pertinent positive or pertinent negative responses have been documented in the HPI. ROS Other: All systems not noted in ROS Statement are negative. Past Medical History Past Medical History: No Reported History History of Any Multi-Drug Resistant Organisms: None Reported Past Surgical History: Adenoidectomy, Tonsillectomy Additional Past Surgical History / Comment(s): wisdom teeth Past Anesthesia/Blood Transfusion Reactions: No Reported Reaction Past Psychological History: Bipolar, Depression Smoking Status: Never smoker Past Alcohol Use History: None Reported, Occasional Past Drug Use History: None Reported - Past Family History Mother Family Medical History: Musculoskeletal Disorder General Exam Limitations: no limitations General appearance: alert, in no apparent distress Head exam: Present: atraumatic, normocephalic, normal inspection Eye exam: Present: normal appearance, PERRL, EOMI Pupils: Present: normal accommodation ENT exam: Present: normal exam, normal oropharynx, mucous membranes moist, TM's normal bilaterally Neck exam: Present: normal inspection, full ROM. Absent: tenderness, meningismus Respiratory exam: Present: normal lung sounds bilaterally. Absent: respiratory distress, wheezes, rales Cardiovascular Exam: Present: regular rate, normal rhythm, normal heart sounds Extremities exam: Present: normal inspection, full ROM. Absent: tenderness Back exam: Present: normal inspection, full ROM. Absent: tenderness Neurological exam: Present: alert, oriented X3 Psychiatric exam: Present: normal affect, normal mood Skin exam: Present: warm, dry, intact, normal color Course Vital Signs 02/11/20 20:56 Temperature 99.1 F Pulse Rate 88 Respiratory 18 Rate Blood Pressure 122/83 O2 Sat by Pulse 96 Oximetry Medical Decision Making - Medical Decision Making Patient is 19-year-old male presenting to the emergency department with chief complaint of runny nose and sore throat. Physical examination is unremarkable. Patient is unable respiratory distress. Her vitals are stable. covid-19 sample pending. Patient advised to take Tylenol if she develops a fever. Patient advised to self isolate for the next 3 hours until the results are revealed. Return parameters were thoroughly discussed the patient is a nursing agreeable. Case discussed with physician. Disposition Clinical Impression: Upper respiratory infection Disposition: HOME SELF-CARE Condition: Stable Instructions (If sedation given, give patient instructions): Upper Respiratory Infection (DC) Additional Instructions: U will be notified with results of the Bipin testing within 24-48 hours. Until then, self isolate and take Tylenol if he developed fever. Is patient prescribed a controlled substance at d/c from ED?: No Referrals: None,Stated [Primary Care Provider] - 1-2 days Time of Disposition: 21:33
== END 2020-02-11 21:55 | disposition home or self-care (01) ==
LOC: EC 20:48
DX: J06.9 Acute upper respiratory infection, unspecified (principal); Z90.89 Acquired absence of other organs; Z20.828 Contact with and (suspected) exposure to other viral communicable diseases
CPT/HCPCS: 99283; U0003

== ENCOUNTER 2020-03-18 15:15 | Emergency (ER) | payer OTHER ==
[2020-03-18 15:29] VITALS: RESP 18; TEMP 98.2
[2020-03-18] MEDS ORDERED: SODIUM CHLORIDE 0.9% 1,000 ML IV STA (15:57)
[2020-03-18 16:17] LABS: Appearance,Urine Clear (Clear); Bilirubin,Urine Negative (Negative); Blood,Urine Negative (Negative); Color,Urine Yellow; Glucose,Urine (UA) Negative (Negative); Ketones,Urine Negative (Negative); Leukocyte Esterase,Urine Negative (Negative); Nitrite,Urine Negative (Negative); Protein,Urine Negative (Negative); Specific Gravity,Urine 1.022 (1.001-1.035); Urobilinogen,Urine <2.0 mg/dL (<2.0)
[2020-03-18 16:18] LABS: Basophils % (A) 0 %; Eosinophils % (A) 1 %; HCT 40.7 % (34.0-46.0); HGB 13.5 gm/dL (11.4-16.0); Lymphocytes # (A) 1.8 k/uL (1.0-4.8); Lymphocytes % (A) 26 %; MCH 29.3 pg (25.0-35.0); MCHC 33.3 g/dL (31.0-37.0); MCV 88.1 fL (80.0-100.0); Mean Platelet Volume 8.5; Monocytes # (A) 0.3 k/uL (0-1.0); Monocytes % (A) 4 %; Neutrophils # (A) 4.9 k/uL (1.3-7.7); Neutrophils % (A) 69 %; Platelet Count 181 k/uL (150-450); RBC 4.62 m/uL (3.80-5.40); WBC 7.1 k/uL (3.8-10.6)
[2020-03-18 16:28] LABS: ALT 13 U/L (4-34); AST 22 U/L (14-36); African American GFR (CKD) >90 (>60 ml/min/1.73 sqM); Albumin 4.3 g/dL (3.5-5.0); Alkaline Phosphatase 51 U/L (38-126); Anion Gap 10 mmol/L; Blood Urea Nitrogen 9 mg/dL (7-17); Calcium 9.5 mg/dL (8.4-10.2); Carbon Dioxide 20 mmol/L (22-30); Chloride 105 mmol/L (98-107); Glucose 85 mg/dL (74-99); Magnesium 1.7 mg/dL (1.6-2.3); Non-African American GFR(CKD) >90 (>60 ml/min/1.73 sqM); Phosphorus 4.2 mg/dL (2.5-4.5); Potassium 4.1 mmol/L (3.5-5.1); Sodium 135 mmol/L (137-145); Total Bilirubin 0.5 mg/dL (0.2-1.3); Total Protein 7.1 g/dL (6.3-8.2)
[2020-03-18 16:32] LABS: Partial Thromboplastin Time 22.8 sec (22.0-30.0); Prothrombin Time 10.1 sec (9.0-12.0)
[2020-03-18 16:34] LABS: D-Dimer 1.09 mg/L FEU (<0.60)
--- NOTE | 2020-03-18 16:37 | ED ---
Dizziness HPI - General Chief Complaint: Dizziness Stated Complaint: syncope Time Seen by Provider: 03/18/20 15:34 Source: patient, RN notes reviewed, old records reviewed Mode of arrival: wheelchair Limitations: no limitations - History of Present Illness Initial Comments: This is a 19-year-old of a syncopal event syncopal event occurred at work today. Patient without complaint here in the ER no headache chest pain shortness breath or abdominal pain states she could be will she is on control patient does not smoke. No recent travel history or sick contacts does have episodes of syncope before and near-syncope. MD Complaint: near syncope -: minutes(s) Timing: gradual onset History of Same: Yes History of Trauma: No Severity: moderate Improves With: remaining still Worsens With: movement Associated Symptoms: denies other symptoms - Related Data Home Medications Medication Instructions Recorded Confirmed Apri 28-Day 1 tab PO DAILY 03/18/20 03/18/20 Allergies Allergy/AdvReac Type Severity Reaction Status Date / Time No Known Allergies Allergy Verified 03/18/20 16:43 Review of Systems ROS Statement: Those systems with pertinent positive or pertinent negative responses have been documented in the HPI. ROS Other: All systems not noted in ROS Statement are negative. Past Medical History Past Medical History: No Reported History History of Any Multi-Drug Resistant Organisms: None Reported Past Surgical History: Adenoidectomy, Tonsillectomy Additional Past Surgical History / Comment(s): wisdom teeth Past Anesthesia/Blood Transfusion Reactions: No Reported Reaction Past Psychological History: Bipolar, Depression Smoking Status: Vaper Past Alcohol Use History: Occasional Past Drug Use History: None Reported - Past Family History Mother Family Medical History: Musculoskeletal Disorder General Exam Limitations: no limitations General appearance: alert, in no apparent distress Head exam: Present: atraumatic, normocephalic, normal inspection Eye exam: Present: normal appearance, PERRL, EOMI. Absent: scleral icterus, conjunctival injection, periorbital swelling ENT exam: Present: normal exam, mucous membranes moist Neck exam: Present: normal inspection. Absent: tenderness, meningismus, lymphadenopathy Respiratory exam: Present: normal lung sounds bilaterally. Absent: respiratory distress, wheezes, rales, rhonchi, stridor Cardiovascular Exam: Present: regular rate, normal rhythm, normal heart sounds. Absent: systolic murmur, diastolic murmur, rubs, gallop, clicks GI/Abdominal exam: Present: soft, normal bowel sounds. Absent: distended, tenderness, guarding, rebound, rigid Extremities exam: Present: normal inspection, full ROM, normal capillary refill. Absent: tenderness, pedal edema, joint swelling, calf tenderness Back exam: Present: normal inspection Neurological exam: Present: alert, oriented X3, CN II-XII intact Psychiatric exam: Present: normal affect, normal mood Skin exam: Present: warm, dry, intact, normal color. Absent: rash Course Vital Signs 03/18/20 03/18/20 15:26 16:10 Temperature 98.2 F Pulse Rate 99 64 Respiratory 18 18 Rate Blood Pressure 112/82 112/70 O2 Sat by Pulse 99 100 Oximetry - Reevaluation(s) Reevaluation #1: 03/18/20 17:41 Medical record is reviewed Reevaluation #2: 03/18/20 17:41 No recurrent syncope here in the ER Reevaluation #3: 03/18/20 17:41 Spoke patient length regarding findings here in the ER, questions answered EKG Findings - EKG Comments: EKG Findings:: EKG is sinus rhythm 64 OK 160 QRS 82 QTC 414 Medical Decision Making - Medical Decision Making 19 female DF for evaluation of syncope recurrent syncope. Patient has CTA secondary to elevated d-dimer, negative for PE patient can be discharged home - Lab Data Result diagrams: 03/18/20 15:59 03/18/20 15:59 Lab Results 03/18/20 03/18/20 03/18/20 Range/Units 15:59 15:59 15:59 WBC 7.1 (3.8-10.6) k/uL RBC 4.62 (3.80-5.40) m/uL Hgb 13.5 (11.4-16.0) gm/dL Hct 40.7 (34.0-46.0) % MCV 88.1 (80.0-100.0) fL MCH 29.3 (25.0-35.0) pg MCHC 33.3 (31.0-37.0) g/dL RDW 13.0 (11.5-15.5) % Plt Count 181 (150-450) k/uL Neutrophils % 69 % Lymphocytes % 26 % Monocytes % 4 % Eosinophils % 1 % Basophils % 0 % Neutrophils # 4.9 (1.3-7.7) k/uL Lymphocytes # 1.8 (1.0-4.8) k/uL Monocytes # 0.3 (0-1.0) k/uL Eosinophils # 0.0 (0-0.7) k/uL Basophils # 0.0 (0-0.2) k/uL PT 10.1 (9.0-12.0) sec INR 1.0 (<1.2) APTT 22.8 (22.0-30.0) sec D-Dimer 1.09 H (<0.60) mg/L FEU Sodium (137-145) mmol/L Potassium (3.5-5.1) mmol/L Chloride (98-107) mmol/L Carbon Dioxide (22-30) mmol/L Anion Gap mmol/L BUN (7-17) mg/dL Creatinine (0.52-1.04) mg/dL Est GFR (CKD-EPI)AfAm (>60 ml/min/1.73 sqM) Est GFR (CKD-EPI)NonAf (>60 ml/min/1.73 sqM) Glucose (74-99) mg/dL Calcium (8.4-10.2) mg/dL Phosphorus (2.5-4.5) mg/dL Magnesium (1.6-2.3) mg/dL Total Bilirubin (0.2-1.3) mg/dL AST (14-36) U/L ALT (4-34) U/L Alkaline Phosphatase (38-126) U/L Troponin I (0.000-0.034) ng/mL NT-Pro-B Natriuret Pep pg/mL Total Protein (6.3-8.2) g/dL Albumin (3.5-5.0) g/dL Urine Color Yellow Urine Appearance Clear (Clear) Urine pH 6.0 (5.0-8.0) Ur Specific [place] 1.022 (1.001-1.035) Urine Protein Negative (Negative) Urine Glucose (UA) Negative (Negative) Urine Ketones Negative (Negative) Urine Blood Negative (Negative) Urine Nitrite Negative (Negative) Urine Bilirubin Negative (Negative) Urine Urobilinogen <2.0 (<2.0) mg/dL Ur Leukocyte Esterase Negative (Negative) Urine HCG, Qual (Not Detectd) 03/18/20 03/18/20 03/18/20 Range/Units 15:59 15:59 16:03 WBC (3.8-10.6) k/uL RBC (3.80-5.40) m/uL Hgb (11.4-16.0) gm/dL Hct (34.0-46.0) % MCV (80.0-100.0) fL MCH (25.0-35.0) pg MCHC (31.0-37.0) g/dL RDW (11.5-15.5) % Plt Count (150-450) k/uL Neutrophils % % Lymphocytes % % Monocytes % % Eosinophils % % Basophils % % Neutrophils # (1.3-7.7) k/uL Lymphocytes # (1.0-4.8) k/uL Monocytes # (0-1.0) k/uL Eosinophils # (0-0.7) k/uL Basophils # (0-0.2) k/uL PT (9.0-12.0) sec INR (<1.2) APTT (22.0-30.0) sec D-Dimer (<0.60) mg/L FEU Sodium 135 L (137-145) mmol/L Potassium 4.1 (3.5-5.1) mmol/L Chloride 105 (98-107) mmol/L Carbon Dioxide 20 L (22-30) mmol/L Anion Gap 10 mmol/L BUN 9 (7-17) mg/dL Creatinine 0.69 (0.52-1.04) mg/dL Est GFR (CKD-EPI)AfAm >90 (>60 ml/min/1.73 sqM) Est GFR (CKD-EPI)NonAf >90 (>60 ml/min/1.73 sqM) Glucose 85 (74-99) mg/dL Calcium 9.5 (8.4-10.2) mg/dL Phosphorus 4.2 (2.5-4.5) mg/dL Magnesium 1.7 (1.6-2.3) mg/dL Total Bilirubin 0.5 (0.2-1.3) mg/dL AST 22 (14-36) U/L ALT 13 (4-34) U/L Alkaline Phosphatase 51 (38-126) U/L Troponin I <0.012 (0.000-0.034) ng/mL NT-Pro-B Natriuret Pep pg/mL Total Protein 7.1 (6.3-8.2) g/dL Albumin 4.3 (3.5-5.0) g/dL Urine Color Urine Appearance (Clear) Urine pH (5.0-8.0) Ur Specific [place] (1.001-1.035) Urine Protein (Negative) Urine Glucose (UA) (Negative) Urine Ketones (Negative) Urine Blood (Negative) Urine Nitrite (Negative) Urine Bilirubin (Negative) Urine Urobilinogen (<2.0) mg/dL Ur Leukocyte Esterase (Negative) Urine HCG, Qual Not Detected (Not Detectd) 03/18/20 Range/Units 16:03 WBC (3.8-10.6) k/uL RBC (3.80-5.40) m/uL Hgb (11.4-16.0) gm/dL Hct (34.0-46.0) % MCV (80.0-100.0) fL MCH (25.0-35.0) pg MCHC (31.0-37.0) g/dL RDW (11.5-15.5) % Plt Count (150-450) k/uL Neutrophils % % Lymphocytes % % Monocytes % % Eosinophils % % Basophils % % Neutrophils # (1.3-7.7) k/uL Lymphocytes # (1.0-4.8) k/uL Monocytes # (0-1.0) k/uL Eosinophils # (0-0.7) k/uL Basophils # (0-0.2) k/uL PT (9.0-12.0) sec INR (<1.2) APTT (22.0-30.0) sec D-Dimer (<0.60) mg/L FEU Sodium (137-145) mmol/L Potassium (3.5-5.1) mmol/L Chloride (98-107) mmol/L Carbon Dioxide (22-30) mmol/L Anion Gap mmol/L BUN (7-17) mg/dL Creatinine (0.52-1.04) mg/dL Est GFR (CKD-EPI)AfAm (>60 ml/min/1.73 sqM) Est GFR (CKD-EPI)NonAf (>60 ml/min/1.73 sqM) Glucose (74-99) mg/dL Calcium (8.4-10.2) mg/dL Phosphorus (2.5-4.5) mg/dL Magnesium (1.6-2.3) mg/dL Total Bilirubin (0.2-1.3) mg/dL AST (14-36) U/L ALT (4-34) U/L Alkaline Phosphatase (38-126) U/L Troponin I (0.000-0.034) ng/mL NT-Pro-B Natriuret Pep 48 pg/mL Total Protein (6.3-8.2) g/dL Albumin (3.5-5.0) g/dL Urine Color Urine Appearance (Clear) Urine pH (5.0-8.0) Ur Specific [place] (1.001-1.035) Urine Protein (Negative) Urine Glucose (UA) (Negative) Urine Ketones (Negative) Urine Blood (Negative) Urine Nitrite (Negative) Urine Bilirubin (Negative) Urine Urobilinogen (<2.0) mg/dL Ur Leukocyte Esterase (Negative) Urine HCG, Qual (Not Detectd) - Radiology Data Radiology results: report reviewed (CT chest is negative for PE), image reviewed Disposition Clinical Impression: Dehydration, Syncope Disposition: HOME SELF-CARE Condition: Good Instructions (If sedation given, give patient instructions): Syncope (ED) Is patient prescribed a controlled substance at d/c from ED?: No Referrals: Graciela Forbes MD [Primary Care Provider] - 1-2 days
--- NOTE | 2020-03-18 17:30 | CT ---
EXAMINATION TYPE: CT angio chest DATE OF EXAM: 03/18/2020 5:06 PM COMPARISON: None HISTORY: syncopal episode. No chest complaints at time of scan. CT DLP: 203.7 mGycm Automated exposure control for dose reduction was used. CONTRAST: CTA scan of the thorax is performed with IV Contrast, patient injected with 56 mL of Isovue 370, pulm onary embolism protocol. MIP images are created and reviewed. FINDINGS: LUNGS: The lungs are grossly clear, there is no concerning parenchymal mass or nodule identified. T here is no pleural effusion or pneumothorax seen. The tracheobronchial tree is patent. MEDIASTINUM: There is satisfactory enhancement of the pulmonary artery and its branches, there is no CT evidence for pulmonary embolism. There are no greater than 1 cm hilar or mediastinal lymph nodes. No axillary lymphadenopathy. No pericardial effusion is seen. The cardiac size is normal. No thorac ic aortic aneurysm. OTHER: No additional significant abnormality is seen. IMPRESSION: NO PULMONARY EMBOLISM. NO ACUTE PULMONARY PROCESS.
[2020-03-18 18:02] VITALS: BP 111/76; PULSE 88
== END 2020-03-18 18:01 | disposition home or self-care (01) ==
LOC: EC 15:15
DX: E86.0 Dehydration (principal); R55 Syncope and collapse; F17.290 Nicotine dependence, other tobacco product, uncomplicated
CPT/HCPCS: 36415; 85379; 83880; 80053; 83735; 84100; 84484; 85025; 85610; 85730; 81003; 81025; 71275; 99285; 96360; 96361; Q9967; 93005

== ENCOUNTER 2020-03-23 18:15 | Emergency (ER) | payer OTHER ==
[2020-03-23 18:33] VITALS: TEMP 98.4
[2020-03-23] MEDS ORDERED: ONDANSETRON ODT 4 MG TAB PO STA (19:08)
--- NOTE | 2020-03-23 19:11 | ED ---
General Adult HPI - General Chief complaint: Dizziness Stated complaint: Dizziness Time Seen by Provider: 03/23/20 18:42 Source: patient Mode of arrival: ambulatory Limitations: no limitations - History of Present Illness Initial comments: Dictation was produced using [employer], dictation software. please excuse any grammatical, word or spelling errors. This patient was cared for during a federal and state declared state of emergency secondary to Covid 19 Chief Complaint: 20-year-old female with worsening dizziness and presyncope History of Present Illness: 20-year-old female she was recently seen in the emergency department for presyncope. 5 days ago she was evaluated for syncopal episode that occurred at work. 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 Patient states she gets these episodes of dizziness and presyncope intermittently. Patient has . She states she is on control. She did follow-up with her primary care physician. After the event that occurred today while at work she tried to call her PCP but reports that was instructed to come to the emergency department due to increasing severity and intensity of her symptoms. She states that she feels slightly dizzy at the moment. She has no pain complaints. The ROS documented in this emergency department record has been reviewed and confirmed by me. Those systems with pertinent positive or negative responses have been documented in the HPI. All other systems are other negative and/or noncontributory. PHYSICAL EXAM: General Impression: Alert and oriented x3, not in acute distress HEENT: Normocephalic atraumatic, extra-ocular movements intact, pupils equal and reactive to light bilaterally, mucous membranes moist. Cardiovascular: Heart regular rate and rhythm Chest: Able to complete full sentences, no retractions, no tachypnea Abdomen: abdomen soft, non-tender, non-distended, no organomegaly Musculoskeletal: Pulses present and equal in all extremities, no peripheral edema Motor: no focal deficits noted Neurological: CN II-XII grossly intact, no focal motor or sensory deficits noted Skin: Intact with no visualized rashes Psych: Normal affect and mood ED course: 20-year-old male presents with presyncope. Signs upon arrival shows findings within acceptable limits. Physical examination is benign. Chart review was performed. Patient was seen and evaluated emergency department 5 days ago. 5 days ago she had a CT angios the chest sounded be unremarkable. Besides elevated d-dimer patient had normal labs. Urinalysis is unremarkable. Patient is on control. Patient observed in the emergency department no significant issues. Is given a Zofran ODT. This point patient will be disch arge. Is unclear what is causing patient's symptoms. She does have outpatient appointments with neurology and cardiology in the near future. Patient is agreeable with plan. She follows up with primary care physician. EKG interpretation: Ventricular rate 59, sinus bradycardia,. 156, QRS 70, QTc is 378. No VA prolongation, no QTC prolongation, no ST or T-wave changes noted. EKG compared to 03/18/2020 showing no changes. Overall, this EKG is unremarkable. Of note there is inverted P and T-wave in lead 3. - Related Data Home Medications Medication Instructions Recorded Confirmed Apri 28-Day 1 tab PO DAILY 03/18/20 03/18/20 Allergies Allergy/AdvReac Type Severity Reaction Status Date / Time lamotrigine [From Lamictal] Allergy Unknown Verified 03/23/20 18:33 Review of Systems ROS Statement: Those systems with pertinent positive or pertinent negative responses have been documented in the HPI. ROS Other: All systems not noted in ROS Statement are negative. Past Medical History Past Medical History: Asthma History of Any Multi-Drug Resistant Organisms: None Reported Past Surgical History: Adenoidectomy, Tonsillectomy Additional Past Surgical History / Comment(s): wisdom teeth Past Anesthesia/Blood Transfusion Reactions: No Reported Reaction Past Psychological History: Bipolar, Depression Smoking Status: Vaper Past Alcohol Use History: Occasional Past Drug Use History: None Reported - Past Family History Mother Family Medical History: Musculoskeletal Disorder General Exam Limitations: no limitations Course Vital Signs 03/23/20 18:29 Temperature 98.4 F Pulse Rate 73 Respiratory 18 Rate Blood Pressure 102/73 O2 Sat by Pulse 99 Oximetry Medical Decision Making - Lab Data Lab Results 03/23/20 Range/Units 19:15 Urine Color Light Yellow Urine Appearance Clear (Clear) Urine pH 6.0 (5.0-8.0) Ur Specific [employer] 1.009 (1.001-1.035) Urine Protein Negative (Negative) Urine Glucose (UA) Negative (Negative) Urine Ketones Negative (Negative) Urine Blood Negative (Negative) Urine Nitrite Negative (Negative) Urine Bilirubin Negative (Negative) Urine Urobilinogen <2.0 (<2.0) mg/dL Ur Leukocyte Esterase Negative (Negative) Disposition Clinical Impression: Dizziness Disposition: HOME SELF-CARE Condition: Good Instructions (If sedation given, give patient instructions): Dizziness (ED) Additional Instructions: 1. Follow-up with her primary care physician. 2. Please keep her appointments with cardiology and neurology 3. Return to emergency department if he have persistent symptoms, especially palpitations. Please try to check upir heart rate with your apple watch if you feel dizzy and having palpitations using the [employer] heart michelle. Is patient prescribed a controlled substance at d/c from ED?: No Referrals: Graciela Forbes MD [Primary Care Provider] - 1-2 days Time of Disposition: 20:11
[2020-03-23 19:48] LABS: Appearance,Urine Clear (Clear); Bilirubin,Urine Negative (Negative); Blood,Urine Negative (Negative); Color,Urine Light Yellow; Glucose,Urine (UA) Negative (Negative); Ketones,Urine Negative (Negative); Leukocyte Esterase,Urine Negative (Negative); Nitrite,Urine Negative (Negative); Protein,Urine Negative (Negative); Specific Gravity,Urine 1.009 (1.001-1.035); Urobilinogen,Urine <2.0 mg/dL (<2.0)
[2020-03-23 20:30] VITALS: BP 108/64; PULSE 62; RESP 16
== END 2020-03-23 20:44 | disposition home or self-care (01) ==
LOC: EC 18:15
DX: R42 Dizziness and giddiness (principal); R55 Syncope and collapse; F17.290 Nicotine dependence, other tobacco product, uncomplicated; Z88.8 Allergy status to other drugs, medicaments and biological substances
CPT/HCPCS: 81003; 93005; 99284

== ENCOUNTER 2020-07-14 11:41 | Emergency (ER) | payer OTHER ==
[2020-07-14 12:00] VITALS: RESP 18
[2020-07-14] MEDS ORDERED: SODIUM CHLORIDE 0.9% 1,000 ML IV STA (12:19)
[2020-07-14 12:49] LABS: Basophils % (A) 0 %; Eosinophils # (A) 0.1 k/uL (0-0.7); Eosinophils % (A) 1 %; HCT 37.3 % (34.0-46.0); HGB 13.1 gm/dL (11.4-16.0); Lymphocytes % (A) 33 %; MCH 30.7 pg (25.0-35.0); MCHC 35.1 g/dL (31.0-37.0); MCV 87.5 fL (80.0-100.0); Mean Platelet Volume 8.5; Monocytes # (A) 0.3 k/uL (0-1.0); Monocytes % (A) 4 %; Neutrophils # (A) 3.6 k/uL (1.3-7.7); Neutrophils % (A) 60 %; Platelet Count 185 k/uL (150-450); RBC 4.26 m/uL (3.80-5.40); RDW 13.8 % (11.5-15.5)
[2020-07-14 12:57] LABS: Appearance,Urine Cloudy (Clear); Bacteria,Urine Rare /hpf; Bilirubin,Urine Negative (Negative); Blood,Urine Trace (Negative); Calcium Oxalate Crystals,Urine Few /hpf; Color,Urine Yellow; Glucose,Urine (UA) Negative (Negative); Hyaline Casts,Urine 9 /lpf (0-2); Ketones,Urine Negative (Negative); Leukocyte Esterase,Urine Small (Negative); Mucus,Urine Many /hpf; Nitrite,Urine Negative (Negative); PH, Urine 5.5 (5.0-8.0); Protein,Urine 1+ (Negative); RBC,Urine 5 /hpf (0-5); Specific Gravity,Urine 1.035 (1.001-1.035); Squamous Epithelial Cell,Urine 15 /hpf (0-4); Urobilinogen,Urine <2.0 mg/dL (<2.0); WBC,Urine 5 /hpf (0-5)
[2020-07-14 13:05] LABS: ALT 14 U/L (4-34); AST 19 U/L (14-36); African American GFR (CKD) >90 (>60 ml/min/1.73 sqM); Albumin 4.1 g/dL (3.5-5.0); Alkaline Phosphatase 48 U/L (38-126); Anion Gap 9 mmol/L; Blood Urea Nitrogen 8 mg/dL (7-17); Calcium 9.9 mg/dL (8.4-10.2); Carbon Dioxide 23 mmol/L (22-30); Chloride 102 mmol/L (98-107); Glucose 78 mg/dL (74-99); Non-African American GFR(CKD) >90 (>60 ml/min/1.73 sqM); Potassium 3.8 mmol/L (3.5-5.1); Sodium 134 mmol/L (137-145); Total Bilirubin 0.5 mg/dL (0.2-1.3); Total Protein 6.9 g/dL (6.3-8.2)
--- NOTE | 2020-07-14 13:22 | US ---
EXAMINATION TYPE: US OB limited DATE OF EXAM: 07/14/2020 COMPARISON: NONE CLINICAL HISTORY: syncope, no pain, no bleeding. Ultrasound for heart tones only, patient state s she had a fall at work today, states no pelvic pain or bleeding, 2, para 1 EXAM PERFORMED: Transabdominal (TA) GESTATIONAL AGE / DATING Physician Established: (14 weeks/2 days) EDC: 01/10/2021 No growth performed on today?s study per ordering physician SURVEY HEART RATE: 149 bpm RHYTHM: Normal IMPRESSION: 1. Single intrauterine gestation. Measurements for dating were not performed. Cardiac activity is con firmed. The heart rate was measuring 149 bpm during this exam.
--- NOTE | 2020-07-14 13:54 | ED ---
General Adult HPI - General Chief complaint: Syncope Stated complaint: 13wks preg, syncope Time Seen by Provider: 07/14/20 12:01 Source: patient Mode of arrival: ambulatory Limitations: no limitations - History of Present Illness Initial comments: Patient is a 20-year-old female presenting to the emergency department after having a syncopal event at work. Patient states she has had syncopal events in the past. She is currently 13 weeks . He sees an [employer] in [place]. She's had recent echo and Holter monitor with no acute process seen. She states she was at work today, she felt lightheaded and so she got there, felt very thirsty and then she had a syncopal event. Patient does think she hit the back of her head on the floor. He does have a small lump on the back of her head, there is no bleeding. She states that this time she feels a little lightheaded but that is normal for her, she denies any nausea or vomiting, no a bdominal pain, no vaginal bleeding. She states her has been uncomplicated thus far. She does have occasional nausea with this . She denies any chest pain or shortness of breath at this time. She has no further complaints. Her vital signs are stable upon arrival. - Related Data Home Medications Medication Instructions Recorded Confirmed Gummies 2 tab PO DAILY 07/14/20 07/14/20 Previous Rx's Medication Instructions Recorded Cephalexin [Keflex] 500 mg PO BID 3 Days #6 cap 07/14/20 Allergies Allergy/AdvReac Type Severity Reaction Status Date / Time lamotrigine [From Lamictal] Allergy Unknown Verified 07/14/20 12:28 Review of Systems ROS Statement: Those systems with pertinent positive or pertinent negative responses have been documented in the HPI. ROS Other: All systems not noted in ROS Statement are negative. Past Medical History Past Medical History: Asthma Additional Past Medical History / Comment(s): POTS, syncope History of Any Multi-Drug Resistant Organisms: None Reported Past Surgical History: Adenoidectomy, Tonsillectomy Additional Past Surgical History / Comment(s): wisdom teeth Past Anesthesia/Blood Transfusion Reactions: No Reported Reaction Past Psychological History: Bipolar, Depression Smoking Status: Vaper Past Alcohol Use History: Occasional Past Drug Use History: None Reported - Past Family History Mother Family Medical History: Musculoskeletal Disorder General Exam - General Exam Comments Initial Comments: GENERAL: Patient is well-developed and well-nourished. Patient is nontoxic and in no acute distress. HEAD: Patient has a small hematoma in the ST or aspect of her head, there is no pain to palpation. normocephalic. Signs of basal skull fracture. EYES: Pupils equal round and reactive to light, extraocular movements intact, sclera anicteric, conjunctiva are normal. Eyelids were unremarkable. ENT: TMs normal, nares patent, oropharynx clear without exudates. Moist mucous membranes. NECK: Normal range of motion, supple without lymphadenopathy or JVD. His no midline tenderness. LUNGS: Unlabored respirations. Breath sounds clear to auscultation bilaterally and equal. No wheezes rales or rhonchi. HEART: Regular rate and rhythm without murmurs, rubs or gallops. ABDOMEN: Soft, nontender, normoactive bowel sounds. No guarding, no rebound. No masses appreciated. : Deferred MUSCULOSKELETAL: Normal extremities with adequate strength and normal range of motion, no pitting or edema. No clubbing or cyanosis. NEUROLOGICAL: Patient is alert and oriented x 3. Motor and sensory are also intact. Cranial nerves II through XII grossly intact. Symmetrical smile. Normal speech, normal gait. PSYCH: Normal mood, normal affect. SKIN: Warm, Dry, normal turgor, no rashes or lesions noted. Limitations: no limitations Course Vital Signs 07/14/20 07/14/20 11:55 14:14 Temperature 98.5 F 97.9 F Pulse Rate 97 90 Respiratory 18 18 Rate Blood Pressure 119/76 120/73 O2 Sat by Pulse 97 99 Oximetry EKG Findings - EKG Comments: EKG Findings:: Sinus rhythm with marked sinus arrhythmia, no signs of acute process. Similar to previous EKG on 03/23/2020. Ventricular rate 66, NC interval 186, QT 374. Medical Decision Making - Medical Decision Making Patient is a 20-year-old female presenting after having a syncopal event at work today. She is currently 13 weeks . She has had syncopal events in the past, she's had a recent echo and Holter monitor which showed no acute process. Patient's vital signs are stable, her exam is unremarkable. EKG shows no acute process. Labs are normal, troponin is normal. Urine does show mild amount of bacteria, I will treat her for asymptomatic bacteriuria. I obtained heart tones which were normal. Patient received fluids, she's been feeling improvement in the ER. Patient will follow up with her [employer] as well as her [employer]. Patient is stable for discharge. Patient is in agreement with this plan of care. Return parameters were discussed with the patient and they verbalized understanding. Case discussed with Dr. higgins. - Lab Data Result diagrams: 07/14/20 12:29 07/14/20 12: Lab Results 07/14/20 07/14/20 07/14/20 Range/Units 12: 12: 12: WBC 6.0 (3.8-10.6) k/uL RBC 4.26 (3.80-5.40) m/uL Hgb 13.1 (11.4-16.0) gm/dL Hct 37.3 (34.0-46.0) % MCV 87.5 (80.0-100.0) fL MCH 30.7 (25.0-35.0) pg MCHC 35.1 (31.0-37.0) g/dL RDW 13.8 (11.5-15.5) % Plt Count 185 (150-450) k/uL MPV 8.5 Neutrophils % 60 % Lymphocytes % 33 % Monocytes % 4 % Eosinophils % 1 % Basophils % 0 % Neutrophils # 3.6 (1.3-7.7) k/uL Lymphocytes # 2.0 (1.0-4.8) k/uL Monocytes # 0.3 (0-1.0) k/uL Eosinophils # 0.1 (0-0.7) k/uL Basophils # 0.0 (0-0.2) k/uL Sodium 134 L (137-145) mmol/L Potassium 3.8 (3.5-5.1) mmol/L Chloride 102 (98-107) mmol/L Carbon Dioxide 23 (22-30) mmol/L Anion Gap 9 mmol/L BUN 8 (7-17) mg/dL Creatinine 0.50 L (0.52-1.04) mg/dL Est GFR (CKD-EPI)AfAm >90 (>60 ml/min/1.73 sqM) Est GFR (CKD-EPI)NonAf >90 (>60 ml/min/1.73 sqM) Glucose 78 (74-99) mg/dL Calcium 9.9 (8.4-10.2) mg/dL Total Bilirubin 0.5 (0.2-1.3) mg/dL AST 19 (14-36) U/L ALT 14 (4-34) U/L Alkaline Phosphatase 48 (38-126) U/L Troponin I (0.000-0.034) ng/mL Total Protein 6.9 (6.3-8.2) g/dL Albumin 4.1 (3.5-5.0) g/dL Urine Color Yellow Urine Appearance Cloudy H (Clear) Urine pH 5.5 (5.0-8.0) Ur Specific [place] 1.035 (1.001-1.035) Urine Protein 1+ H (Negative) Urine Glucose (UA) Negative (Negative) Urine Ketones Negative (Negative) Urine Blood Trace H (Negative) Urine Nitrite Negative (Negative) Urine Bilirubin Negative (Negative) Urine Urobilinogen <2.0 (<2.0) mg/dL Ur Leukocyte Esterase Small H (Negative) Urine RBC 5 (0-5) /hpf Urine WBC 5 (0-5) /hpf Ur Squamous Epith Cells 15 H (0-4) /hpf Calcium Oxalate Crystal Few H (None) /hpf Urine Bacteria Rare H (None) /hpf Hyaline Casts 9 H (0-2) /lpf Urine Mucus Many H (None) /hpf 07/14/20 Range/Units 12:29 WBC (3.8-10.6) k/uL RBC (3.80-5.40) m/uL Hgb (11.4-16.0) gm/dL Hct (34.0-46.0) % MCV (80.0-100.0) fL MCH (25.0-35.0) pg MCHC (31.0-37.0) g/dL RDW (11.5-15.5) % Plt Count (150-450) k/uL MPV Neutrophils % % Lymphocytes % % Monocytes % % Eosinophils % % Basophils % % Neutrophils # (1.3-7.7) k/uL Lymphocytes # (1.0-4.8) k/uL Monocytes # (0-1.0) k/uL Eosinophils # (0-0.7) k/uL Basophils # (0-0.2) k/uL Sodium (137-145) mmol/L Potassium (3.5-5.1) mmol/L Chloride (98-107) mmol/L Carbon Dioxide (22-30) mmol/L Anion Gap mmol/L BUN (7-17) mg/dL Creatinine (0.52-1.04) mg/dL Est GFR (CKD-EPI)AfAm (>60 ml/min/1.73 sqM) Est GFR (CKD-EPI)NonAf (>60 ml/min/1.73 sqM) Glucose (74-99) mg/dL Calcium (8.4-10.2) mg/dL Total Bilirubin (0.2-1.3) mg/dL AST (14-36) U/L ALT (4-34) U/L Alkaline Phosphatase (38-126) U/L Troponin I <0.012 (0.000-0.034) ng/mL Total Protein (6.3-8.2) g/dL Albumin (3.5-5.0) g/dL Urine Color Urine Appearance (Clear) Urine pH (5.0-8.0) Ur Specific [place] (1.001-1.035) Urine Protein (Negative) Urine Glucose (UA) (Negative) Urine Ketones (Negative) Urine Blood (Negative) Urine Nitrite (Negative) Urine Bilirubin (Negative) Urine Urobilinogen (<2.0) mg/dL Ur Leukocyte Esterase (Negative) Urine RBC (0-5) /hpf Urine WBC (0-5) /hpf Ur Squamous Epith Cells (0-4) /hpf Calcium Oxalate Crystal (None) /hpf Urine Bacteria (None) /hpf Hyaline Casts (0-2) /lpf Urine Mucus (None) /hpf Disposition Clinical Impression: Vasovagal syncope, Disposition: HOME SELF-CARE Condition: Stable Instructions (If sedation given, give patient instructions): Syncope (ED) Additional Instructions: Please return to the Emergency Department if symptoms worsen or any other concerns. Please take antibiotic as prescribed. Please follow-up with your OB doctor as well as your cardiology doctor. Prescriptions: Cephalexin [Keflex] 500 mg PO BID 3 Days #6 cap Is patient prescribed a controlled substance at d/c from ED?: No Referrals: Graciela Forbes MD [Primary Care Provider] - 1-2 days
[2020-07-14 14:15] VITALS: BP 120/73; PULSE 90; TEMP 97.9
== END 2020-07-14 14:15 | disposition home or self-care (01) ==
LOC: EC 11:41
DX: O99.891 Other specified diseases and conditions complicating pregnancy (principal); R55 Syncope and collapse; O99.331 Smoking (tobacco) complicating pregnancy, first trimester; F17.200 Nicotine dependence, unspecified, uncomplicated; Z88.8 Allergy status to other drugs, medicaments and biological substances; Z90.89 Acquired absence of other organs; Z3A.13 13 weeks gestation of pregnancy
CPT/HCPCS: 36415; 76815; 80053; 81001; 84484; 85025; 93005; 96360; 99284

== ENCOUNTER 2020-11-28 22:36 | Outpatient (CLI) | payer OTHER ==
[2020-11-28 23:21] VITALS: BP 122/63; PULSE 88; RESP 16; TEMP 97.2
--- NOTE | 2020-11-29 11:29 | P.MSEPDOC ---
Presenting Problems - Arrival Data Date of Arrival on Unit: 11/28/20 Time of Arrival on Unit: 22:36 Mode of Transport: Ambulatory - Complaint OB-Reason for Admission/Chief Complaint: Decreased Movement Comment: Pt presents to triage with complaints of decreased movement. States she last felt baby move this morning. Denies bleeding or leaking of fluid Medical History - Information : 1 Para: 0 Term: 0 : 0 Abortions: Spontaneous or Elective: 0 Number of Living Children: 0 - Gestational Age Gestational Age by MAME (wks/days): 33 Weeks and 6 Days - History Comment: Pt states is measuring small and she receives NSTs 2x per week with Dr. Heredia in [place] Review of Systems - Review of Systems Constitutional: No problems Breast: No problems ENT: No problems Cardiovascular: No problems Respiratory: No problems Gastrointestinal: No problems Genitourinary: No problems Musculoskeletal: No problems Neurological: No problems Skin: No problems Vital Signs - Temperature Temperature: 97.2 F Temperature Source: Oral - Pulse Pulse Oximetery Pulse Rate: 88 Pulse Assessment Method: Automatic Cuff - Respirations Respiratory Rate: 16 Oxygen Delivery Method: Room Air O2 Sat by Pulse Oximetry: 97 - Blood Pressure Right Arm Blood Pressure: 122/63 Blood Pressure Mean: 82 Blood Pressure Source: Automatic Cuff Medical Screen Scoring - Assessment - Baby A Baseline FHR: 150 Heart Rate - NICHD Category: Category I (Normal) NST: Reactive Physician Notification - Physician Notified Physician Notified Date: 11/28/20 Physician Notified Time: 22:57 Physician: Peter Dang New Order Received: Yes - Notification Comment Comment: Dr. Dang called re: pt c/o decreased movement today and hard. abdomen, last felt movement this AM, abdomen palpated which is soft and nontender,. reactive NST, no contx, bleeding, leaking of fluid or pain, elevated FHR which has. returned to baseline, audible movement heard through EFM and pt statement of still. not feeling movement since arrival to [facility]. Dr. Dang states if NST was reactive pt. can be d/c home Maternal Triage Index - Maternal Triage Index Presenting for scheduled procedure w/no complaint: No - Stat/Priority 1 Stat Priority 1: No - Urgent/Priority 2 Urgent Priority 2: Yes Provider Notified: Peter Dang Provider Notified Time: 22:57 Criteria Met for Priority 2: C/o decreased movement Disposition - Disposition OB Disposition: Discharge to home Discharge Date: 11/28/20 Discharge Time: 23:05 I agree with the RN Medical Screening Exam: Yes Physician's MSE Comment: I have neither seen nor examined the patient. Case reviewed; plan agreed upon as documented in EMR&OBIX.: Yes Diagnosis: RELATED CONDITIONS, UNSPECIFIED, THIRD TRIMESTER
== END 2020-11-28 23:05 | disposition home or self-care (01) ==
LOC: FBPOP 22:36
PROVIDERS: ATTEND Obstetrics & Gynecology
DX: O36.8130 Decreased fetal movements, third trimester, not applicable or unspecified (principal); Z3A.33 33 weeks gestation of pregnancy; Z88.8 Allergy status to other drugs, medicaments and biological substances
CPT/HCPCS: 59025; G0463; 99213

== ENCOUNTER 2020-12-27 00:07 | Outpatient (CLI) | payer MEDICAID ==
[2020-12-27 00:57] VITALS: BP 119/65; PULSE 67; RESP 18; TEMP 97.2
--- NOTE | 2021-01-25 08:28 | P.MSEPDOC ---
Presenting Problems - Arrival Data Date of Arrival on Unit: 12/27/20 Time of Arrival on Unit: 00:07 Mode of Transport: Ambulatory - Complaint OB-Reason for Admission/Chief Complaint: Pain Comment: pt came in for evaluation because she has occassional rib pain, none at this time, and had cramping earlier in the day. Medical History - Information : 1 Para: 0 Term: 0 : 0 Abortions: Spontaneous or Elective: 0 Number of Living Children: 0 - Gestational Age Gestational Age by MAME (wks/days): 38 Weeks and 0 Days - History Comment: IUGR - pt states she sees her Dr to discuss IOL Review of Systems - Review of Systems Constitutional: No problems Breast: No problems ENT: No problems Cardiovascular: No problems Respiratory: No problems Gastrointestinal: No problems Genitourinary: No problems Musculoskeletal: No problems Neurological: No problems Skin: No problems Vital Signs - Temperature Temperature: 97.2 F Temperature Source: Temporal Artery Scan - Pulse Right Pulse Oximetery Pulse Rate: 67 - Respirations Respiratory Rate: 18 Oxygen Delivery Method: Room Air - Blood Pressure Right Arm Blood Pressure: 119/65 Blood Pressure Mean: 83 Blood Pressure Source: Automatic Cuff Medical Screen Scoring - Assessment - Baby A Baseline FHR: 125 Heart Rate - NICHD Category: Category I (Normal) NST: Reactive Physician Notification - Physician Notified Physician Notified Date: 12/27/20 Physician Notified Time: 00:38 Physician: Kathleen Wolf Order Received: Yes (d/c) Maternal Triage Index - Maternal Triage Index Presenting for scheduled procedure w/no complaint: No - Stat/Priority 1 Stat Priority 1: No - Urgent/Priority 2 Urgent Priority 2: No - Prompt/Priority 3 Prompt Priority 3: No - Non-Urgent/Priority 4 Non-Urgent Priority 4: Yes Criteria Met for Priority 4: common discomforts of . Disposition - Disposition OB Disposition: Discharge to home Discharge Date: 12/27/20 Discharge Time: 00:40 I agree with the RN Medical Screening Exam: Yes Case reviewed; plan agreed upon as documented in EMR&OBIX.: Yes Diagnosis: PAIN, UNSPECIFIED
== END 2020-12-27 00:40 | disposition home or self-care (01) ==
LOC: FBPOP 00:07
PROVIDERS: ATTEND Obstetrics & Gynecology
DX: O26.899 Other specified pregnancy related conditions, unspecified trimester (principal); Z3A.38 38 weeks gestation of pregnancy
CPT/HCPCS: 59025; G0463; 99213

== ENCOUNTER → 2022-04-15 | Outpatient (CLI) | payer OTHER ==
--- NOTE | 2022-04-15 14:47 | MR ---
EXAMINATION TYPE: MR brain wo con DATE OF EXAM: 04/15/2022 2:39 PM COMPARISON: NONE HISTORY: Migraines for 3 years, left sided hearing loss. Multiplanar and multispin-echo imaging of the brain was performed . The ventricles, basal cisterns and sulci overlying the cerebral convexities are within normal limits. There is no evidence for midline shift or mass effect. Acute intracranial hemorrhage or extra-axial collection is not evident. The brain parenchyma reveals no abnormal increased signal. No acute edema is identified. The paranasal sinuses and mastoid air cells are well-aerated. IMPRESSION: Unremarkable MRI of the brain.
--- NOTE | 2022-04-15 14:48 | MR ---
EXAMINATION TYPE: MR angio head wo con DATE OF EXAM: 04/15/2022 2:39 PM COMPARISON: NONE HISTORY: Migraines for 3 years, left sided hearing loss. Three-dimensional [id number] intracranial MRA was performed with multiple intensity projection im ages submitted and source data reviewed at the workstation. The vertebrobasilar system as well as intracranial portions of the internal carotid arteries and thei r major tributaries are patent. I do not see evidence for sizable aneurysm or vascular malformation. IMPRESSION: Normal study.
== END | disposition home or self-care (01) ==
LOC: RADMRIMAIN 13:41
PROVIDERS: ATTEND Family Medicine
DX: H93.8X1 Other specified disorders of right ear (principal); R94.6 Abnormal results of thyroid function studies; R51.9 Headache, unspecified
CPT/HCPCS: 70544; 70551

== ENCOUNTER → 2022-05-03 | Outpatient (CLI) | payer OTHER ==
--- NOTE | 2022-05-04 07:26 | US ---
EXAMINATION TYPE: US carotid duplex BILAT DATE OF EXAM: 05/03/2022 COMPARISON: NONE CLINICAL HISTORY: H93.8X1 OTHER SPECIFIED DISORDERS OF RIGHT EAR. pulsatile tinnitus right ear, no h/ o stroke TECHNIQUE: Carotid duplex ultrasound examination. Indirect Doppler criteria was utilized. FINDINGS: EXAM MEASUREMENTS: RIGHT: Peak Systolic Velocity (PSV) cm/sec ----- Right CCA: 128.5 ----- Right ICA: 106.9 ----- Right ECA: 87.5 ICA/CCA ratio: 0.8 RIGHT: End Diastole cm/sec ----- Right CCA: 30.2 ----- Right ICA: 32.2 ----- Right ECA: 11.7 LEFT: Peak Systolic Velocity (PSV) cm/sec ----- Left CCA: 105.8 ----- Left ICA: 113.5 ----- Left ECA: 110.4 ICA/CCA ratio: 1.1 LEFT: End Diastole cm/sec ----- Left CCA: 32.2 ----- Left ICA: 48.7 ----- Left ECA: 13.3 VERTEBRALS (direction of flow): Right Vertebral: Antegrade Left Vertebral: Antegrade Rhythm: Normal SENIOR RISK MANAGER NOTES: Mild homogeneous plaque with no stenosis IMPRESSION: No evidence for hemodynamically significant stenosis. Criteria for Assigning % of Stenosis / Diameter reduction (Estimation based on the indirect measurements of the internal carotid artery velocities (ICA PSV). 1. Normal (no stenosis)=ICA PSV < 125 cm/s: ratio < 2.0: ICA EDV<40 cm/s. 2. Less than 50% stenosis=ICA PSV < 125 cm/s: ratio < 2.0: ICA EDV<40 cm/s. 3. 50 to 69% stenosis=ICA PSV of 125 to 230 cm/s: ration 2.0 ? 4.0: ICA EDV 40-100 cm/s. 4. Greater than 70% stenosis to near occlusion= ICA PSV > 230 cm/s: ratio > 4.0: ICA EDV > 100 cm/s. 5. Near occlusion= ICA PSV velocities may be low or undetectable: variable ratio and ICA EDV. 6. Total occlusion=unable to detect flow.
--- NOTE | 2022-05-04 07:29 | US ---
EXAMINATION TYPE: US thyroid st tissue head/neck DATE OF EXAM: 05/03/2022 COMPARISON: NONE CLINICAL HISTORY: R94.6 Abnormal thyroid function test. abn labs GLAND SIZE: Right Lobe: 4.4 x 1.8 x 1.2 cm Overall Parenchyma: heterogenous Left Lobe: 4.4 x 1.9 x 1.2 cm Overall Parenchyma: heterogeneous Isthmus Thickness: 0.4 cm NODULES RIGHT: # of nodules measured on right: 0 LEFT: # of nodules measured on left: 0 ISTHMUS: # of nodules measured in the isthmus: 0 Bilateral neck scanned, no evidence of lymphadenopathy. IMPRESSION: Diffuse glandular heterogeneity. No distinct solid or cystic nodule seen.
== END | disposition home or self-care (01) ==
LOC: RADUSWWP 15:59
PROVIDERS: ATTEND Family Medicine
DX: H93.8X1 Other specified disorders of right ear (principal); R94.6 Abnormal results of thyroid function studies
CPT/HCPCS: 76536; 93880

== ENCOUNTER 2022-06-27 13:19 | Emergency (ER) | payer OTHER ==
[2022-06-27 14:31] VITALS: BP 105/68; PULSE 71; RESP 18; TEMP 98.1
[2022-06-27] MEDS ORDERED: KETOROLAC 15 MG/ML 1 ML VIAL IVP STA (15:24)
[2022-06-27] MEDS ORDERED: SODIUM CHLORIDE 0.9% 500 ML 500 ML IV STA (15:24)
--- NOTE | 2022-06-27 15:28 | ED ---
Abdominal Pain HPI - General Chief Complaint: Abdominal Pain Stated Complaint: abd pain Time Seen by Provider: 06/27/22 15:05 Source: patient, RN notes reviewed, old records reviewed Mode of arrival: ambulatory - History of Present Illness Initial Comments: This is a well-appearing 22-year-old female who presents to the emergency room [address] with complaints of left lower quadrant abdominal pain that radiates to the right side. States it been ongoing for 9 days with no improvement. Last menstrual period was the first week of June. Denies any vaginal bleeding or vaginal discharge. States that she didn't want to urgent care today who recommended she come to the emergency room for evaluation. She states that did test her urine was negative for or infection. She does have history of asthma and pops with syncope. Denies any fevers, nausea vomiting diarrhea, shortness of breath or cough. MD Complaint: abdominal pain -: days(s) (9) Location: LLQ Radiation: RLQ Severity scale (1-10): 8 Consistency: constant Improves With: nothing Worsens With: nothing Associated Symptoms: denies other symptoms - Related Data Home Medications Medication Instructions Recorded Confirmed Gummies 2 tab PO DAILY 07/14/20 12/27/20 Allergies Allergy/AdvReac Type Severity Reaction Status Date / Time lamotrigine [From Lamictal] Allergy Unknown Verified 06/27/22 14:31 Review of Systems ROS Statement: Those systems with pertinent positive or pertinent negative responses have been documented in the HPI. ROS Other: All systems not noted in ROS Statement are negative. Past Medical History Past Medical History: Asthma Additional Past Medical History / Comment(s): POTS, syncope History of Any Multi-Drug Resistant Organisms: None Reported Past Surgical History: Adenoidectomy, Tonsillectomy Additional Past Surgical History / Comment(s): wisdom teeth Past Anesthesia/Blood Transfusion Reactions: No Reported Reaction Past Psychological History: Bipolar, Depression Smoking Status: Never smoker Past Alcohol Use History: None Reported Past Drug Use History: None Reported - Past Family History Mother Family Medical History: Musculoskeletal Disorder General Exam General appearance: alert, in no apparent distress Head exam: Present: atraumatic Eye exam: Absent: scleral icterus, conjunctival injection, periorbital swelling Neck exam: Absent: tenderness, meningismus Respiratory exam: Present: normal lung sounds bilaterally. Absent: respiratory distress, accessory muscle use Cardiovascular Exam: Present: regular rate GI/Abdominal exam: Present: soft, tenderness (Left lower quadrant suprapubic). Absent: distended, rigid Extremities exam: Present: normal capillary refill. Absent: pedal edema Back exam: Present: full ROM. Absent: tenderness, CVA tenderness (R), CVA tenderness (L), paraspinal tenderness, vertebral tenderness, rash noted Neurological exam: Present: alert, oriented X3 Psychiatric exam: Present: normal affect (tearful), normal mood Skin exam: Present: warm, dry, normal color. Absent: cyanosis, diaphoretic, petechiae, pallor Course Vital Signs 06/27/22 14:26 Temperature 98.1 F Pulse Rate 71 Respiratory 18 Rate Blood Pressure 105/68 O2 Sat by Pulse 98 Oximetry Disposition Clinical Impression: Abdominal pain Disposition: Left Against Medical Advice Condition: Undetermined Is patient prescribed a controlled substance at d/c from ED?: No Referrals: Graciela Forbes MD [Primary Care Provider] - 1-2 days
== END 2022-06-27 16:00 | disposition left against medical advice (07) ==
LOC: EC 13:19
DX: R10.32 Left lower quadrant pain (principal); J45.909 Unspecified asthma, uncomplicated; F41.9 Anxiety disorder, unspecified; F32.A Depression, unspecified; Z88.8 Allergy status to other drugs, medicaments and biological substances; Z53.29 Procedure and treatment not carried out because of patient's decision for other reasons
CPT/HCPCS: 99283

== ENCOUNTER 2022-09-18 12:26 | Emergency (ER) | payer OTHER ==
[2022-09-18 12:32] VITALS: RESP 18; TEMP 98.8
--- NOTE | 2022-09-18 12:35 | ED ---
General Adult HPI - General Chief complaint: Headache Stated complaint: Migraine Time Seen by Provider: 09/18/22 12:33 Source: patient Mode of arrival: ambulatory Limitations: no limitations - History of Present Illness Initial comments: Patient presents to the ED complaining of having a bifrontal headache with associated nausea, vomiting and light/noise sensitivity for the past 3 days or so. Patient states that her symptoms are typical of her migraine headaches, and she states that she has had similar symptoms with her migraine headaches in the past. Patient states that her symptoms seem to be more severe today, so she has come to the ED. Patient states that she has been taking Excedrin and ibuprofen for her pain without much relief, but she denies taking any medications for her symptoms today. Patient denies trauma or injury, sudden onset of headache, LOC, neck pain or stiffness, fever or chills, focal numbness/weakness/neuro deficit, visual changes, speech difficulty, chest pain, dyspnea, cough or cold symptoms, dizziness, abdominal pain, diarrhea or constipation, dysuria or urinary symptoms, or any other symptoms or complaints. - Related Data Home Medications Medication Instructions Recorded Confirmed No Known Home Medications 09/18/22 09/18/22 Allergies Allergy/AdvReac Type Severity Reaction Status Date / Time lamotrigine [From Lamictal] Allergy Unknown Verified 09/18/22 13:29 Review of Systems ROS Statement: Those systems with pertinent positive or pertinent negative responses have been documented in the HPI. ROS Other: All systems not noted in ROS Statement are negative. Past Medical History Past Medical History: Asthma Additional Past Medical History / Comment(s): POTS, syncope History of Any Multi-Drug Resistant Organisms: None Reported Past Surgical History: Adenoidectomy, Tonsillectomy Additional Past Surgical History / Comment(s): wisdom teeth Past Anesthesia/Blood Transfusion Reactions: No Reported Reaction Past Psychological History: Bipolar, Depression Smoking Status: Never smoker Past Alcohol Use History: None Reported Past Drug Use History: None Reported - Past Family History Mother Family Medical History: Musculoskeletal Disorder General Exam Limitations: no limitations General appearance: alert, in no apparent distress Head exam: Present: atraumatic, normocephalic Eye exam: Present: normal appearance, PERRL, EOMI ENT exam: Present: mucous membranes moist Neck exam: Present: other (no nuchal rigidity or meningeal signs are present on exam). Absent: tenderness, meningismus Respiratory exam: Present: normal lung sounds bilaterally. Absent: respiratory distress, wheezes, rales, rhonchi, stridor Cardiovascular Exam: Present: regular rate, normal rhythm, normal heart sounds, other (normal radial pulses bilaterally) GI/Abdominal exam: Present: soft. Absent: distended, tenderness, guarding Extremities exam: Absent: pedal edema Neurological exam: Present: alert, oriented X3, CN II-XII intact. Absent: motor sensory deficit Psychiatric exam: Present: normal affect, normal mood Skin exam: Present: warm, dry, intact, normal color Course Vital Signs 09/18/22 09/18/22 12:30 14:32 Temperature 98.8 F Pulse Rate 105 H 81 Respiratory 18 18 Rate Blood Pressure 112/76 101/60 O2 Sat by Pulse 98 98 Oximetry - Reevaluation(s) Reevaluation #1: 09/18/22 14:35 Patient states that her pain/symptoms have now significantly improved, and she denies development of any new symptoms while in the ED. Patient remains alert and breathing comfortably. Patient continues to have a normal/nonfocal neurological exam. Patient was counseled about migraine headaches, and she feels comfortable being discharged home at this time. Patient was clearly explained return and follow-up instructions. Patient was instructed to follow up closely with her primary care provider. Patient to get a ride home from the ED this afternoon. Medical Decision Making - Medical Decision Making Was pt. sent in by a medical professional or institution (, PA, YARN PREPARATION SUPERVISOR, urgent care, hospital, or senior living...) When possible be specific @ -No Did you speak to anyone other than the patient for history (EMS, parent, family, police, friend...)? What history was obtained from this source @ -No Did you review nursing and triage notes (agree or disagree)? Why? @ -I reviewed and agree with nursing and triage notes Were old charts reviewed (outside hosp., previous admission, EMS record, old EKG, old radiological studies, urgent care reports/EKG's, senior living records)? Report findings @ -No old charts were reviewed Differential Diagnosis (chest pain, altered mental status, abdominal pain women, abdominal pain men, vaginal bleeding, weakness, fever, dyspnea, syncope, headache, dizziness, GI bleed, back pain, seizure, CVA, palpatations, mental health, musculoskeletal)? @ -Differential Headache: Migraine, tension, cluster, sinusitis, this is not meant to be an all-inclusive list. EKG interpreted by me (3pts min.). @ -None done X-rays interpreted by me (1pt min.). @ -None done CT interpreted by me (1pt min.). @ -None done U/S interpreted by me (1pt. min.). @ -None done What testing was considered but not performed or refused? (CT, X-rays, U/S, labs)? Why? @ -None What meds were considered but not given or refused? Why? @ -None Did you discuss the management of the patient with other professionals (peace ocasio i.e. , PA, YARN PREPARATION SUPERVISOR, lab, RT, psych nurse, social media content manager, parer, teacher, senior loan officer, onsite case manager)? Give summary @ -No Was smoking cessation discussed for >3mins.? @ -No Was critical care preformed (if so, how long)? @ -No Were there social determinants of health that impacted care today? How? (Homelessness, low income, unemployed, alcoholism, drug addiction, transportation, low edu. Level, literacy, decrease access to med. care, fci, rehab)? @ -No Was there de-escalation of care discussed even if they declined (Discuss DNR or withdrawal of care, Hospice)? DNR status @ -No What co-morbidities impacted this encounter? (DM, HTN, Smoking, COPD, CAD, Cancer, CVA, ARF, Chemo, Hep., AIDS, mental health diagnosis, sleep apnea, morbid obesity)? @ -None Was patient admitted / discharged? Hospital course, mention meds given and route, prescriptions, significant lab abnormalities, going to OR and other pertinent info. @ -Patient reports having symptoms typical of her migraine headaches. Patient's symptoms have improved with migraine medications in the ED. Patient has a normal/nonfocal neurological exam. Patient denies sudden onset of headache or head trauma/injury. Patient is afebrile and without nuchal rigidity. I suspect that the patient's symptoms are likely due to migraine headache, and I do not suspect an emergent medical condition at this time. Will discharge patient home at this time. Patient feels comfortable with this plan. Undiagnosed new problem with uncertain prognosis? @ -No Drug Therapy requiring intensive monitoring for toxicity (Heparin, Nitro, Insulin, Cardizem)? @ -No Were any procedures done? @ -No Diagnosis/symptom? @ -Migraine headache Acute, or Chronic, or Acute on Chronic? @ -Acute Uncomplicated (without systemic symptoms) or Complicated (systemic symptoms)? @ -default Side effects of treatment? @ -No Exacerbation, Progression, or Severe Exacerbation? @ -No Poses a threat to life or bodily function? How? (Chest pain, [place], [place], pneumonia, PE, COPD, DKA, ARF, appy, cholecystitis, CVA, Diverticulitis, Homicidal, Suicidal, threat to staff... and all critical care pts) @ -No Disposition Clinical Impression: Migraine headache Disposition: HOME SELF-CARE Condition: Stable Instructions (If sedation given, give patient instructions): Migraine Headache (ED) Additional Instructions: Return to the ER immediately should you develop new or worsening pain, a high fever, neck stiffness, persistent vomiting, numbness or weakness, shortness of breath, or new or worsening symptoms. Follow up closely with your primary care provider. Is patient prescribed a controlled substance at d/c from ED?: No Referrals: Graciela Forbes MD [STAFF PHYSICIAN] - 1-2 days Time of Disposition: 14:40
[2022-09-18] MEDS ORDERED: diphenhydrAMINE 50 MG/ML 1 ML VIAL IVP STA (12:40)
[2022-09-18] MEDS ORDERED: SODIUM CHLORIDE 0.9% 1,000 ML IV STA (12:40)
[2022-09-18] MEDS ORDERED: KETOROLAC 15 MG/ML 1 ML VIAL IVP STA (12:40)
[2022-09-18] MEDS ORDERED: METOCLOPRAMIDE 5 MG/ML 2 ML VIAL IVP STA (12:40)
[2022-09-18 15:01] VITALS: BP 104/67; PULSE 78
== END 2022-09-18 15:02 | disposition home or self-care (01) ==
LOC: EC 12:26
DX: G43.909 Migraine, unspecified, not intractable, without status migrainosus (principal); J45.909 Unspecified asthma, uncomplicated; Z88.8 Allergy status to other drugs, medicaments and biological substances
CPT/HCPCS: 99283; 96374; 96375 ×2; 96361; J1200; J2765; J1885

== ENCOUNTER 2023-02-22 13:22 | Emergency (ER) | payer OTHER ==
--- NOTE | 2023-02-22 14:18 | ED ---
Chest Pain HPI - General Source: patient, RN notes reviewed Mode of arrival: ambulatory Limitations: no limitations <Benja Kendrick - Last Filed: 02/22/23 14:17> <Janelle Marcano - Last Filed: 02/22/23 18:07> - General Chief Complaint: Chest Pain Stated Complaint: Chest Pain,Sob Time Seen by Provider: 02/22/23 14:17 - History of Present Illness Initial Comments: 22-year-old female presents emergency Department chief complaint of chest pain, shortness breath. Patient states it started yesterday she initially thought it was related to her asthmatic she used her inhaler which she felt worse. Patient points it's centralized chest pressure breath no history of DVT or PEs denies any control use no recent traveling. (Benja Kendrick) Quick note reviewed: 22-year-old female with no significant past medical history presents the emergency department with a chief complaint of shortness of breath. Patient reports that she started having shortness of breath at rest yesterday. She reports accompanying feelings of chest tightness that she localizes in her upper chest. She reports she has attempted to use her inhaler with no symptomatic improvement. She denies any long recent plane rides or travel. Denies history of DVT. Denies use of oral contraceptive use. She reports that her shortness of breath is worse and when she attempts to take a deep breath. Denies fever, chills, cough, sore throat, nausea, vomiting. (Janelle Marcano) - Related Data Home Medications Medication Instructions Recorded Confirmed No Known Home Medications 09/18/22 09/18/22 Allergies Allergy/AdvReac Type Severity Reaction Status Date / Time lamotrigine [From Lamictal] Allergy Unknown Verified 02/22/23 13:34 Review of Systems ROS Other: All systems not noted in ROS Statement are negative. <Benja Kendrick - Last Filed: 02/22/23 14:17> ROS Other: All systems not noted in ROS Statement are negative. <Janelle Marcano - Last Filed: 02/22/23 18:07> ROS Statement: Those systems with pertinent positive or pertinent negative responses have been documented in the HPI. EKG Findings - EKG Comments: EKG Findings:: I interpreted the following: EKG performed at 13:51 rate 67 bpm normal sinus rhythm MO interval 169, QRS duration 87, QT/QTc 390/405 <Janelle Marcano - Last Filed: 02/22/23 18:07> Past Medical History Past Medical History: Asthma Additional Past Medical History / Comment(s): POTS, syncope History of Any Multi-Drug Resistant Organisms: None Reported Past Surgical History: Adenoidectomy, Tonsillectomy Additional Past Surgical History / Comment(s): wisdom teeth Past Anesthesia/Blood Transfusion Reactions: No Reported Reaction Past Psychological History: Bipolar, Depression Smoking Status: Never smoker Past Alcohol Use History: None Reported Past Drug Use History: None Reported - Past Family History Mother Family Medical History: Musculoskeletal Disorder <Benja Kendrick - Last Filed: 02/22/23 14:17> General Exam Limitations: no limitations <Benja Kendrick - Last Filed: 02/22/23 14:17> <Janelle Marcano - Last Filed: 02/22/23 18:07> - General Exam Comments Initial Comments: Visual Physical Exam Vital signs reviewed General: Well-appearing, nontoxic, no acute distress. Head: Normocephalic, atraumatic Eyes: PERRLA, EOMI ENT: Airway patent Chest: Nonlabored breathing Skin: No visual rash, normal skin tone Neuro: Alert and oriented 3 Musculoskeletal: No gross abnormalities (Benja Kendrick) General: Alert, in no acute distress Head: atraumatic normocephalic. Eyes PERRL, EOMI intact, mucous membranes moist Respiratory: Lungs clear to auscultation bilaterally Cardiovascular: Heart rate regular rate and rhythm Abdominal: Soft without guarding or rebound Extremities: Normal inspection with full range of motion and normal capillary refill Neuroogic: alert and oriented 3, CN II-XII intact, able to ambulate with steady gait Skin: warm dry and intact with normal color (Janelle Marcano) Course Vital Signs 02/22/23 02/22/23 13:32 16:08 Temperature 97.7 F 97.8 F Pulse Rate 93 82 Respiratory 20 16 Rate Blood Pressure 98/51 102/64 O2 Sat by Pulse 95 100 Oximetry Chest Pain MDM <Benja Kendrick - Last Filed: 02/22/23 14:17> <Janelle Marcano - Last Filed: 02/22/23 18:07> - MDM I performed a quick note portion of this Chart signed Benja Kendrick PA-C (Benja Kendrick) Was pt. sent in by a medical professional or institution (MARGARITA Hyatt, [employer] CYLINDER PACKING MIXER, urgent care, hospital, or correction...) When possible be specific @ -[No] Did you speak to anyone other than the patient for history (EMS, parent, family, police, friend...)? What history was obtained from this source @ -[No] Did you review nursing and triage notes (agree or disagree)? Why? @ -[I reviewed and agree with nursing and triage notes] Were old charts reviewed (outside hosp., previous admission, EMS record, old EKG, old radiological studies, urgent care reports/EKG's, correction records)? Report findings @ -[No old charts were reviewed] Differential Diagnosis (chest pain, altered mental status, abdominal pain women, abdominal pain men, vaginal bleeding, weakness, fever, dyspnea, syncope, headache, dizziness, GI bleed, back pain, seizure, CVA, palpatations, mental health, musculoskeletal)? @ -[not applicable] EKG interpreted by me (3pts min.). @ -[As above] X-rays interpreted by me (1pt min.). @ S x-ray negative for any acute intrapleural process. CT interpreted by me (1pt min.). @ -[None done] U/S interpreted by me (1pt. min.). @ -[None done] What testing was considered but not performed or refused? (CT, X-rays, U/S, labs)? Why? @ -[None] What meds were considered but not given or refused? Why? @ -[None] Did you discuss the management of the patient with other professionals (professionals i.e. MARGARITA Hyatt, [employer] CYL[employer] P[employer]ING MIXER, lab, RT, psych nurse, social work manager, supervisor rides, teacher, commanding officer traffic division, home health care case manager)? Give summary @ -[No] Was smoking cessation discussed for >3mins.? @ -[No] Was critical care preformed (if so, how long)? @ -[No] Were there social determinants of health that impacted care today? How? (Homelessness, low income, unemployed, alcoholism, drug addiction, transportation, low edu. Level, literacy, decrease access to med. care, care home, re hab)? @ -[No] Was there de-escalation of care discussed even if they declined (Discuss DNR or withdrawal of care, Hospice)? DNR status @ -[No] What co-morbidities impacted this encounter? (DM, HTN, Smoking, COPD, CAD, Cancer, CVA, ARF, Chemo, Hep., AIDS, mental health diagnosis, sleep apnea, morbid obesity)? @ -[None] Was patient admitted / discharged? Hospital course, mention meds given and route, prescriptions, significant lab abnormalities, going to OR and other pertinent info. @ -Discharged. 22-year-old female with no significant past medical history presents to the emergency department with chest pain and shortness of breath. Patient had a thorough history and physical exam performed on the ED. Physical exam is essentially unremarkable. Heart rate regular rate and rhythm, lungs clear to auscultation bilaterally abdomen soft and nontender. Vital signs stable upon evaluation patient had laboratory studies including negative d- dimer and negative troponin test. Chest x-ray is negative. EKG normal sinus rhythm. I discussed the results in detail with the patient verbalized understanding all questions were addressed. She is agreeable with the plan for discharge home with recommended close follow-up with PCP in 1-2 days. Return p recautions were discussed at length. Case discussed with Dr. Santiago, Who agrees with POC Undiagnosed new problem with uncertain prognosis? @ -[No] Drug Therapy requiring intensive monitoring for toxicity (Heparin, Nitro, Insulin, Cardizem)? @ -[No] Were any procedures done? @ -[No] Diagnosis/symptom? @ -CHest pain ] - SHortness of Breath Acute, or Chronic, or Acute on Chronic? @ -Acute Uncomplicated (without systemic symptoms) or Complicated (systemic symptoms)? @ -Uncomplicated Side effects of treatment? @ -[No] Exacerbation, Progression, or Severe Exacerbation? @ -[No] Poses a threat to life or bodily function? How? (Chest pain, [place], [place], pneumonia, PE, COPD, DKA, ARF, appy, cholecystitis, CVA, Diverticulitis, Homicidal, Suicidal, threat to staff... and all critical care pts) @ -Low likelihood (Janelle Marcano) Disposition <Benja Kendrick - Last Filed: 02/22/23 14:17> Is patient prescribed a controlled substance at d/c from ED?: No Time of Disposition: 15:49 <Janelle Marcano - Last Filed: 02/22/23 18:07> Clinical Impression: Chest pain, Shortness of breath Disposition: HOME SELF-CARE Condition: Stable Instructions (If sedation given, give patient instructions): Chest Pain (ED) Additional Instructions: Please return to the nearest emergency department if symptoms worsen or persist Referrals: Graciela Forbes MD [Primary Care Provider] - 1-2 days
[2023-02-22 14:28] LABS: Basophils % (A) 0 %; Eosinophils # (A) 0.1 k/uL (0-0.7); Eosinophils % (A) 1 %; HCT 36.5 % (34.0-46.0); HGB 12.2 gm/dL (11.4-16.0); Lymphocytes # (A) 2.1 k/uL (1.0-4.8); Lymphocytes % (A) 43 %; MCH 28.6 pg (25.0-35.0); MCHC 33.3 g/dL (31.0-37.0); MCV 85.9 fL (80.0-100.0); Mean Platelet Volume 9.3; Monocytes # (A) 0.2 k/uL (0-1.0); Monocytes % (A) 5 %; Neutrophils # (A) 2.3 k/uL (1.3-7.7); Neutrophils % (A) 48 %; Platelet Count 186 k/uL (150-450); RBC 4.25 m/uL (3.80-5.40); WBC 4.8 k/uL (3.8-10.6)
[2023-02-22 14:37] LABS: ALT 14 U/L (4-34); AST 26 U/L (14-36); African American GFR (CKD) >90 (>60 ml/min/1.73 sqM); Albumin 4.4 g/dL (3.5-5.0); Alkaline Phosphatase 47 U/L (38-126); Anion Gap 7 mmol/L; Blood Urea Nitrogen 9 mg/dL (7-17); Calcium 9.4 mg/dL (8.4-10.2); Carbon Dioxide 25 mmol/L (22-30); Chloride 105 mmol/L (98-107); Glucose 91 mg/dL (74-99); Magnesium 1.9 mg/dL (1.6-2.3); Non-African American GFR(CKD) >90 (>60 ml/min/1.73 sqM); Potassium 4.3 mmol/L (3.5-5.1); Sodium 137 mmol/L (137-145); Total Bilirubin 0.7 mg/dL (0.2-1.3); Total Protein 7.2 g/dL (6.3-8.2)
[2023-02-22 14:52] LABS: Partial Thromboplastin Time 24.1 sec (22.0-30.0); Prothrombin Time 10.2 sec (9.0-12.0)
--- NOTE | 2023-02-22 15:30 | XR ---
EXAMINATION TYPE: XR chest 2V DATE OF EXAM: 02/22/2023 2:43 PM CLINICAL INDICATION:Female, 22 years old with history of Chest Pain; COMPARISON: Chest radiographs from 07/26/2017 TECHNIQUE: XR chest 2V Frontal and lateral views of the chest. FINDINGS: Lungs/Pleura: There is no evidence of pleural effusion, focal consolidation, or pneumothorax. Pulmonary vascularity: Unremarkable. Heart/mediastinum: Cardiomediastinal silhouette is unremarkable. Musculoskeletal: No acute osseous pathology. IMPRESSION: No acute cardiopulmonary disease/process.
[2023-02-23 15:44] VITALS: BP 102/64; PULSE 82; RESP 16; TEMP 97.8
== END 2023-02-22 17:32 | disposition home or self-care (01) ==
LOC: EC 13:22
DX: R07.89 Other chest pain (principal); R06.02 Shortness of breath; J45.909 Unspecified asthma, uncomplicated; Z88.8 Allergy status to other drugs, medicaments and biological substances
CPT/HCPCS: 36415; 71046; 80053; 83735; 84484; 85025; 85379; 85610; 85730; 93005; 99285